=== PATIENT | male | born 1955 | race Caucasian/White ===

== ENCOUNTER 2016-09-11 09:05 | Inpatient (IN) | payer OTHER ==
[2016-08-29 09:11] VITALS: BMI 33.9
[~2016-09-11 09:05] MED LIST: ACETAMINOPHEN TAB 500 MG TAB PO ONE; DEXAMETHASONE SOD PHOSPHATE 10 MG/ML 1 ML VIAL IV ONE; FAMOTIDINE 20 MG/2 ML VIAL IV PRN; HYDROmorphone 1 MG/ML 1 ML SYRINGE IVP PRN; LACTATED RINGERS 1,000 ML IV SCH; LIDOCAINE 1% 20 ML VIAL (10MG/ML) FOR IV START INTRADERMA PRN; MELOXICAM 7.5 MG TAB PO ONE; MIDAZOLAM 2 MG/2 ML VIAL IV PRN; ONDANSETRON 4 MG/2 ML VIAL IVP ONE; TRANEXAMIC ACID 1,000 MG in SODIUM CHLORIDE 0.9% 100 ML IVPB ONE
[2016-09-11] MEDS ORDERED: LIDOCAINE 1% 20 ML VIAL (10MG/ML) FOR IV START INTRADERMA ONE (13:05)
[2016-09-11] MEDS ORDERED: LACTATED RINGERS 1,000 ML BAG IV ONE (15:23)
[2016-09-11] MEDS: ceFAZolin 2 GM in SODIUM CHLORIDE 0.9% 100 ML IVPB ONE ×2 (15:23→18:00)
[2016-09-11] MEDS ORDERED: TRANEXAMIC ACID 1,000 MG/10 ML VIAL ONE (15:23)
[2016-09-11] MEDS ORDERED: ceFAZolin 10 GM VIAL IVPB ONE (15:23)
[2016-09-11] MEDS ORDERED: PHENYLEPHRINE-0.9% NACL SYG 1 MG/10 ML SYRINGE ONE (15:23)
[2016-09-11] MEDS ORDERED: SODIUM CHLORIDE 0.9% 100 ML BAG ONE ×2 (15:23)
[2016-09-11] MEDS ORDERED: SODIUM CHLORIDE 0.9% IRRIG 3,000 ML BAG IRRIGATION ONE (15:23)
[2016-09-11] MEDS ORDERED: PROPOFOL 10 MG/ML 20 ML VIAL IV ONE (15:23)
[2016-09-11] MEDS ORDERED: fentaNYL (PF) 50 MCG/ML 2 ML AMP ONE (15:23)
[2016-09-11] MEDS ORDERED: ceFAZolin 1,000 MG VIAL ONE (15:23)
[2016-09-11] MEDS ORDERED: MIDAZOLAM 2 MG/2 ML VIAL ONE (15:23)
[2016-09-11] MEDS ORDERED: LACTATED RINGERS 1,000 ML IV ONE ×2 (15:40→17:13)
[2016-09-11] MEDS: ceFAZolin 3,000 MG in SODIUM CHLORIDE 0.9% IRRIGATIO 3,000 ML IRRIGATION ONE ×2 (16:17→18:00)
[2016-09-11] MEDS: ROPIVACAINE 246.25 MG, EPINEPHrine 0.5 MG, KETOROLAC 30 MG, cloNIDine HCL/PF 80 MCG, WA... MISCELLANE ONE ×10 (16:26→16:41)
[2016-09-11] MEDS: LACTATED RINGERS 1,000 ML IV ONE ×4 (17:12→18:00)
--- NOTE | 2016-09-11 17:19 | P.OP ---
Date of Procedure: 09/11/16 Procedure(s) Performed: PREOPERATIVE DIAGNOSIS: Right hip severe osteoarthritis POSTOPERATIVE DIAGNOSIS: Right hip severe osteoarthritis OPERATION: Right hip total replacement arthroplasty (uncemented implantation with ceramic on polyethylene articulation). ANESTHESIA: Spinal ESTIMATED BLOOD LOSS: 100 ml. CASTING HOUSE LABORER: Alexandra Lackey PA-C (assistance with: patient positioning, retraction, exposure, hemostasis, leg positioning, implantation, irrigation, closure, dressing) COMPLICATIONS: None apparent. COMPONENTS IMPLANTED: Ascencion continuum acetabular cup with cluster holes; continuum longevity 15 elevated liner, 32 mm id; Ascencion VerSys Fiber Metal taper stem; VerSys 32 mm femoral head with +7 mm neck length extension INDICATIONS: Mr. Matias is a 61-year-old male with significant end-stage osteoarthritis involving the right hip and commensurate severe symptoms. He presents to the operating room today for total hip replacement. I have discussed the steps of the operation as well as potential risks and complications as being inclusive of, but not limited to: Leading, infection, scarring, discomfort, or vessel and/or nerve damage, need for further surgery, loosening, dislocation, wear, osteolysis, limb length inequality, fracture, blood clot, pulmonary embolism, , persistent limp, and other risks. The patient is aware these risks and wishes to proceed with surgery and has signed a consent form. PROCEDURE: After appropriate consent was obtained, the patient was taken to the operating room and placed in supine position. Spinal anesthetic was administered and after confirmation of adequate anesthesia, the patient was placed into the lateral decubitus position with the right side up. Care was taken to make sure that all pressure points were adequately padded and he was stabilized to the table with a Jerzy hip positioner. The right hip was prepped and draped in the usual aseptic fashion using a combination of ChloraPrep and alcohol. Ioban drape was used for the case and the patient received intravenous antibiotics prior to the incision. "Time out" was called , confirming patient identity, side, procedure, availability of implants and administration of antibiotics. The incision was created directly over the greater trochanter and carried slightly posteriorly for a posterior approach to the hip. The incision was then deepened down to subcutaneous tissue and fascia sandie. Fascia sandie was split in line with the incision and split proximally along the fibers of the gluteus gisele. The underlying fibers of the muscle were teased apart using finger dissection and bleeding vessels were picked up and coagulated. Retractor was then placed posteriorly consisting of a blunt [place]. The short external rotators and capsule were exposed using good visualization of the attachment of the external rotators to the femur was established. The short external rotators and capsule were released using electrocautery from their femoral attachments. A hockey stick shaped incision was created in the capsule. Joint fluid was evacuated and the patient's hip was able to be dislocated fairly easily. The patient's femoral head was severely arthritic with eburnated bone present and a 360 degrees pérez of osteophytes. The femoral neck cut was created approximately 1 cm superior to the lesser trochanter using a reciprocating saw. The femoral head and neck fragment was removed and attention was then directed to the acetabulum. An anterior acetabular retractor was applied followed by posterior retraction of the capsule with a Meyerding retractor. This afforded good visualization into the acetabular cavity. Soft tissue was removed and residual cartilage within the acetabular vault was removed using a curette. Labrum was removed using a long-handled knife. Attention was then directed to reaming. The size 44 reamer was used first, followed by increasing increments until the final size reamer was used. Please see the implantation sheet for exact sizes used for the components. Once the final reamer had been utilized to expand the socket it was noted that there was a good supportive bone around the acetabular socket and no further reaming needed to be performed. The trial the same size as the last reamer used was then impacted into the acetabular vault and found to have good fit. The acetabular component, one size (2mm) greater than the trial was then called for. The cluster holes were placed posteriorly and the component was impacted in a position of approximately 40 degrees abduction and 20 degrees anteversion. This matched this patient's [place] anteversion and it was noted that the cup had excellent stability without need for additional screw fixation. Attention was then directed to the acetabular liner. The anteversion and abduction angle of the component was noted to be very good. A 15 elevated liner was used and locked into position with the elevation posterior superior. Osteophytes around the posterior and inferior aspect of the acetabulum were trimmed as necessary to prevent any impingement. Attention was then directed back to the proximal femur. Retractors were placed around the proximal femur and box osteotome was used followed by canal finder and trochanteric reamer. Cylindrical reaming was performed. Progressive broaching was then performed starting with a #10 broach and progressing final size, in a position of 15 degrees anteversion. [place] anteversion was within 5 degrees of stem position. The final size broach had excellent fit and fill of the patient's metaphysis and diaphysis. Trial reduction was then performed starting with size 32 mm femoral head and various neck combination of stability , limb length equality, and soft tissue tension. Trial components were then removed. The canal was lavaged and the final size femoral stem component was impacted into position. The implant fit very well and had excellent stability. The femoral head was then impacted onto the [place] taper. Blood and debris were removed from the acetabular component and the hip was then reduced and checked for stability, limb length and soft tissue tension. These parameters found to be satisfactory, the wound was then thoroughly irrigated with normal saline. Final hemostasis was obtained using electrocautery and IV tranexamic acid, 1 g given at the time of prepping and draping, and another 1 g given at the time of closure. Local anesthetic solution consisting of ropivacaine with epinephrine, clonidine, and ketorolac was also used throughout the case targeting the capsule , fascia, and skin. Closure of the capsule was performed meticulously using #3 Vicryl suture. Four [id number] sutures were placed in the posterior capsule along with repair of the external rotators. The fascia sandie was then repaired using combination of #3 Vicryl suture in interrupted fashion and Quill and running fashion. 2-0 Vicryl suture was used for the subcutaneous tissues and 3-0 Quill for the skin. Dermabond or Steri-Strips were then applied. The patient tolerated the procedure well. There were no complications and the wound bed was dry and there was no need for drain placement. Sterile dressing was then applied and the patient was carefully removed from the operating room table , placed on the stretcher and was taken to the recovery room in stable condition. Sponge and needle counts were correct.
[2016-09-11] MEDS ORDERED: HYDROmorphone 1 MG/ML 1 ML SYRINGE IVP PRN ×2 (17:37)
[2016-09-11] MEDS ORDERED: MAGNESIUM HYDROXIDE 2,400 MG/10 ML CUP PO PRN (17:37)
[2016-09-11] MEDS ORDERED: ONDANSETRON 4 MG/2 ML VIAL IVP PRN (17:37)
[2016-09-11] MEDS ORDERED: HYDROcodone/APAP 5-325MG 1 EACH TAB PO PRN (17:37)
[2016-09-11] MEDS ORDERED: NALOXONE 0.4 MG/ML 1 ML VIAL IV PRN (17:37)
--- NOTE | 2016-09-11 18:04 | XR ---
EXAMINATION TYPE: XR Hip Limited RT DATE OF EXAM: 09/11/2016 5:56 PM CLINICAL HISTORY: Postoperative evaluation TECHNIQUE: Single portable view of the right hip was submitted. FINDINGS: Noted are changes of total hip arthroplasty with femoral and acetabular components appearin g well seated. Alignment is anatomic. Postsurgical soft tissue changes are evident. IMPRESSION: Satisfactory postoperative alignment
[2016-09-11] MEDS: LACTATED RINGERS 1,000 ML IV SCH (19:49)
[2016-09-11] MEDS: HYDROmorphone 1 MG/ML 1 ML SYRINGE IVP PRN (19:50)
[2016-09-11] MEDS: SENNOSIDES-DOCUSATE SODIUM 1 EACH TAB PO SCH (21:54)
[2016-09-11] MEDS: ASPIRIN 325 MG TAB PO SCH (21:54)
[2016-09-11] MEDS: HYDROcodone/APAP 5-325MG 1 EACH TAB PO PRN (22:31)
[2016-09-11] MEDS: ceFAZolin 2 GM in SODIUM CHLORIDE 0.9% 100 ML IVPB SCH (23:18)
[2016-09-12] MEDS: HYDROmorphone 1 MG/ML 1 ML SYRINGE IVP PRN (01:48)
[2016-09-12] MEDS: HYDROcodone/APAP 5-325MG 1 EACH TAB PO PRN (03:41)
[2016-09-12] MEDS: LACTATED RINGERS 1,000 ML IV SCH ×2 (07:49→13:58)
[2016-09-12] MEDS: ASPIRIN 325 MG TAB PO SCH ×2 (07:50→22:20)
[2016-09-12] MEDS: MELOXICAM 7.5 MG TAB PO SCH (07:50)
[2016-09-12] MEDS: MULTIVITAMINS, THERA 1 EACH TAB PO SCH (07:51)
[2016-09-12 08:09] LABS: Basophils % (A) 0 %; CH 31.4; CHCM 35.4; Eosinophils % (A) 0 %; HCT 33.1 % (39.0-53.0); HDW 3.36; HGB 11.2 gm/dL (13.0-17.5); Luc # (Auto) 0.17; Luc % (Auto) 1; Lymphocytes # (A) 0.7 k/uL (1.0-4.8); Lymphocytes % (A) 6 %; MCH 30.2 pg (25.0-35.0); MCHC 33.8 g/dL (31.0-37.0); MCV 89.3 fL (80.0-100.0); Mean Platelet Volume 7.3; Monocytes # (A) 0.7 k/uL (0-1.0); Monocytes % (A) 5 %; Neutrophils # (A) 11.5 k/uL (1.3-7.7); Neutrophils % (A) 88 %; RDW 14.2 % (11.5-15.5); WBC 13.1 k/uL (3.8-10.6); WBC (Perox) 13.84
[2016-09-12] MEDS: ceFAZolin 2 GM in SODIUM CHLORIDE 0.9% 100 ML IVPB SCH (08:23)
--- NOTE | 2016-09-12 09:59 | P.PN ---
Subjective Principal diagnosis: Status post right total hip arthroplasty This is a 61 year-old male post total hip arthroplasty. This is post-op day 1. The patient was evaluated in the recliner chair at the bedside today. The patient denies nausea, vomiting, abdominal pain, shortness of breath, and chest pain this morning. He states his pain is controlled at this time. The patient has not been up with physical therapy. Objective - Vital Signs Vital signs: Vital Signs Temp 98.4 F 09/12/16 08:00 Pulse 102 H 09/12/16 08:00 Resp 14 09/12/16 08:00 BP 152/67 09/12/16 08:00 Pulse Ox 90 L 09/12/16 08:32 Intake & Output 09/11/16 09/12/16 09/12/16 18:59 06:59 18:59 Intake Total 2301 1100 240 Output Total 400 1000 650 Balance 1901 100 -410 Weight 95.254 kg Intake: IV 2301 Intake, IV Titration 400 Amount Lactated Ringers 1,000 ml 400 @ 100 mls/hr IV .Q10H REBECCA Rx#:[id number] Oral 700 240 Output: Urine 300 1000 650 Uretheral (Oakley) 1000 650 Estimated Blood Loss 100 Other: Voiding Method Indwelling Catheter Indwelling Catheter - Exam The patient does not appear in acute distress. Alert and orientated x3. Dressing is clean dry and intact. Incision appears fine with no erythema or active drainage. Calf is soft and nontender. Good foot and ankle motion without difficulty. Sensation and circulatory status is intact. - Labs CBC & Chem 7: 09/12/16 07:50 Labs: Abnormal Lab Results - Last 24 Hours (Table) 09/12/16 Range/Units 07:50 WBC 13.1 H (3.8-10.6) k/uL RBC 3.70 L (4.30-5.90) m/uL Hgb 11.2 L (13.0-17.5) gm/dL Hct 33.1 L (39.0-53.0) % Neutrophils # 11.5 H (1.3-7.7) k/uL Lymphocytes # 0.7 L (1.0-4.8) k/uL Assessment and Plan (1) Primary osteoarthritis of right hip Status: Acute (2) Status post right hip replacement Status: Acute Plan: 1. Continue pain control 2. Anticoagulation with Aspirin 3. Continue physical therapy and ambulation 4. Anticipate discharge home with homecare in the next 1-2 days.
--- NOTE | 2016-09-12 12:06 | P.CONS ---
History of Present Illness - Reason for Consult Consult date: 09/12/16 Radiotherapy for prophylactic heterotrophic ossificaiton Requesting physician: Castro Neal - Chief Complaint I had a right hip replacement - History of Present Illness Mr. Matias is a 61-year-old male with significant end-stage osteoarthritis involving the right hip. He underwent right hip replacement on 09/11/2016 under the care of Dr. Neal. Intraoperativly the patient's femoral head was severely arthritic with eburnated bone present and a 360 degrees pérez of osteophytes. Mr. 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 Mr. Matias appears to be doing quite well today. He states appropriate pain control. Denies nausea, vomiting, fever or chills. Review of Systems Constitutional: Reports chronic pain, Denies as per HPI, Denies anorexia, Denies chills, Denies chronic headaches, Denies daytime sleepiness, Denies fatigue, Denies fever, Denies lethargy, Denies malaise, Denies night sweats, Denies poor appetite, Denies sweats, Denies weakness, Denies weight gain, Denies weight loss Respiratory: Denies as per HPI, Denies congestion, Denies cough, Denies cough with sputum, Denies dyspnea, Denies excessive sputum, Denies hemoptysis, Denies home oxygen, Denies pain, Denies pain on inspiration, Denies pleurisy, Denies respiratory infections, Denies sleep apnea, Denies snoring, Denies wheezing Musculoskeletal: Reports leg numbness/tingling, Reports low back pain, Reports morning stiffness Musculoskeletal: right: hip pain, hip stiffness, hip swelling, bilateral: knee pain Past Medical History Past Medical History: Hyperlipidemia, Hypertension, Osteoarthritis (OA) Additional Past Medical History / Comment(s): . History of Any Multi-Drug Resistant Organisms: Unobtainable Past Surgical History: Orthopedic Surgery Additional Past Surgical History / Comment(s): CIRCUMCISION LATER IN LIFE. 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 Smoking Status: Never smoker Past Alcohol Use History: Rare Past Drug Use History: None Reported - Past Family History Sister(s) Family Medical History: Cancer Additional Family Medical History / Comment(s): LUNG, ANOTHER SISTER FROM CHF Mother Additional Family Medical History / Comment(s): FROM CARDIAC DYSRYTHMIA Father Family Medical History: Coronary Artery Disease (CAD) Additional Family Medical History / Comment(s): AFTER CABG SX 1975- Medications and Allergies Home Medications Medication Instructions Recorded Confirmed Type Amitriptyline HCl [Elavil] 10 mg PO HS 08/29/16 09/11/16 History Ergocalciferol (Vitamin D2) 50,000 unit PO DUMONT 08/29/16 09/11/16 History [Vitamin D2] Gabapentin 600 mg PO BID 08/29/16 08/29/16 History Ibuprofen [Motrin] 800 mg PO BID PRN 08/29/16 09/11/16 History Simvastatin [Zocor] 80 mg PO HS 08/29/16 08/29/16 History amLODIPine [Norvasc] 5 mg PO DAILY 08/29/16 09/11/16 History clonazePAM [KlonoPIN] 0.5 mg PO HS 08/29/16 09/11/16 History traMADol HCL [Ultram] 50 mg PO Q6HR PRN 08/29/16 09/11/16 History Allergies Allergy/AdvReac Type Severity Reaction Status Date / Time No Known Allergies Allergy Verified 08/29/16 09:01 Physical Exam Vitals: Vital Signs Temp Pulse Pulse Resp BP BP Pulse Ox 09/12/16 08:32 90 L 09/12/16 08:00 98.4 F 102 H 14 152/67 93 L 09/12/16 01:35 97.0 F L 102 H 16 124/71 93 L 09/11/16 23:45 17 09/11/16 20:00 90 106 H 16 92 L 09/11/16 19:45 116 H 133/73 09/11/16 19:30 105 H 108/68 09/11/16 19:15 108 H 128/68 09/11/16 19:00 108 H 126/71 09/11/16 18:45 108 H 140/72 09/11/16 18:30 108 H 124/76 09/11/16 18:15 97.6 F 96 16 143/79 92 L 09/11/16 18:00 91 18 129/61 96 09/11/16 17:45 90 18 127/59 96 09/11/16 17:37 98.0 F 107 H 14 140/72 09/11/16 17:30 97.4 F L 93 18 132/62 94 L 09/11/16 13:05 97.8 F 106 H 16 163/79 93 L Intake and Output 09/11/16 09/12/16 09/12/16 22:59 06:59 14:59 Intake Total 2301 500 240 Output Total 400 1000 650 Balance 1901 -500 -410 Intake: IV 1701 Intake, IV Titration 400 Amount Lactated Ringers 1,000 ml 400 @ 100 mls/hr IV .Q10H REBECCA Rx#:[id number] Oral 200 500 240 Output: Urine 300 1000 650 Uretheral (Oakley) 1000 650 Estimated Blood Loss 100 Other: Voiding Method Indwelling Catheter Indwelling Catheter Weight 95.254 kg - Constitutional General appearance: average body habitus - EENT Eyes: EOMI - Respiratory Respiratory: bilateral: CTA - Cardiovascular Rhythm: regular Heart sounds: normal: S1, S2 - Musculoskeletal Musculoskeletal: right sided weakness Results CBC & Chem 7: 09/12/16 07:50 Labs: Abnormal Lab Results - Last 24 Hours (Table) 09/12/16 Range/Units 07:50 WBC 13.1 H (3.8-10.6) k/uL RBC 3.70 L (4.30-5.90) m/uL Hgb 11.2 L (13.0-17.5) gm/dL Hct 33.1 L (39.0-53.0) % Neutrophils # 11.5 H (1.3-7.7) k/uL Lymphocytes # 0.7 L (1.0-4.8) k/uL Assessment and Plan Plan: Mr. Matias is a 61 year old male status post right hip replacement who now presents for external beam radiation to decrease his risk of heterotrophic ossification. Postoperative RT has been shown to be an effective prophylactic treatment to prevent heterotopic bone from partially or completely ankylosing the joint space, causing pain and/or limiting the range of motion. We therefore intend on delivering a single fraction of external beam radiation to a total dose of 700 cGy. We will use 23MV photons in an AP/PA beam arrangement. The patient will be treated this afternoon 09/12/2016. A discussion of the risks and side effects were had including, but not limited to skin redness, irritation, decreased sperm counts, risk of secondary malignancy.
[2016-09-12] MEDS: hydrOXYzine PAMOATE 25 MG CAP PO PRN ×3 (13:56→23:58)
[2016-09-12] MEDS: HYDROcodone/APAP 7.5-325MG 1 EACH TAB PO PRN ×3 (13:56→23:59)
--- NOTE | 2016-09-12 16:17 | P.CONS ---
History of Present Illness - Reason for Consult Consult date: 09/12/16 Medical management Requesting physician: Castro Neal - Chief Complaint Right posterior arthritis - History of Present Illness This is a 61-year-old gentleman with past medical history noted below who was currently admitted to the hospital and is postoperative day #1 status post elective total right hip arthroplasty. Patient is doing fairly well. He does not have any specific concerns or complaints. I was asked to see him for medical management. His blood pressure is slightly elevated. Review of Systems Review of system: 14 points review of systems were obtained and were negative except to what were mentioned in the HPI. Past Medical History Past Medical History: Hyperlipidemia, Hypertension, Osteoarthritis (OA) Additional Past Medical History / Comment(s): . History of Any Multi-Drug Resistant Organisms: Unobtainable Past Surgical History: Orthopedic Surgery Additional Past Surgical History / Comment(s): CIRCUMCISION LATER IN LIFE. 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 Smoking Status: Never smoker Past Alcohol Use History: Rare Past Drug Use History: None Reported - Past Family History Sister(s) Family Medical History: Cancer Additional Family Medical History / Comment(s): LUNG, ANOTHER SISTER FROM CHF Mother Additional Family Medical History / Comment(s): FROM CARDIAC DYSRYTHMIA Father Family Medical History: Coronary Artery Disease (CAD) Additional Family Medical History / Comment(s): AFTER CABG S1975- Medications and Allergies Home Medications Medication Instructions Recorded Confirmed Type Amitriptyline HCl [Elavil] 10 mg PO HS 08/29/16 09/11/16 History Ergocalciferol (Vitamin D2) 50,000 unit PO DUMONT 08/29/16 09/11/16 History [Vitamin D2] Gabapentin 600 mg PO BID 08/29/16 08/29/16 History Ibuprofen [Motrin] 800 mg PO BID PRN 08/29/16 09/11/16 History Simvastatin [Zocor] 80 mg PO HS 08/29/16 08/29/16 History amLODIPine [Norvasc] 5 mg PO DAILY 08/29/16 09/11/16 History clonazePAM [KlonoPIN] 0.5 mg PO HS 08/29/16 09/11/16 History traMADol HCL [Ultram] 50 mg PO Q6HR PRN 08/29/16 09/11/16 History Allergies Allergy/AdvReac Type Severity Reaction Status Date / Time No Known Allergies Allergy Verified 08/29/16 09:01 Physical Exam Vitals: Vital Signs Temp Pulse Pulse Resp BP BP Pulse Ox 09/12/16 14:31 97.6 F 96 16 124/54 94 L 09/12/16 08:32 90 L 09/12/16 08:00 98.4 F 102 H 14 152/67 93 L 09/12/16 01:35 97.0 F L 102 H 16 124/71 93 L 09/11/16 23:45 17 09/11/16 20:00 90 106 H 16 92 L 09/11/16 19:45 116 H 133/73 09/11/16 19:30 105 H 108/68 09/11/16 19:15 108 H 128/68 09/11/16 19:00 108 H 126/71 09/11/16 18:45 108 H 140/72 09/11/16 18:30 108 H 124/76 09/11/16 18:15 97.6 F 96 16 143/79 92 L 09/11/16 18:00 91 18 129/61 96 09/11/16 17:45 90 18 127/59 96 09/11/16 17:37 98.0 F 107 H 14 140/72 09/11/16 17:30 97.4 F L 93 18 132/62 94 L Intake and Output 09/12/16 09/12/16 09/12/16 06:59 14:59 22:59 Intake Total 500 740 Output Total 1000 1050 Balance -500 -310 Intake: Oral 500 740 Output: Urine 1000 1050 Uretheral (Oakley) 1000 650 Other: Voiding Method Indwelling Catheter General: The patient is awake and alert, in no distress, and does not appear acutely ill. Eye: extra-ocular movements are intact; there is normal conjunctiva bilaterally. . Neck: The neck is supple, there is no tenderness or JVD. Cardiovascular: Normal S1-S2, no S3-S4, no murmurs. Respiratory: Lungs clear to auscultation bilaterally with no wheezes rhonchi or rales. Gastrointestinal: Abdomen is soft, nontender, nondistended, with no organomegaly. . Musculoskeletal: Normal ROM, no tenderness, There is no pedal edema. Neurological: There are no obvious motor or sensory deficits. Speech is normal. Skin: Skin is warm and dry and no rashes or lesions are noted. Results CBC & Chem 7: 09/12/16 07:50 Labs: Abnormal Lab Results - Last 24 Hours (Table) 09/12/16 Range/Units 07:50 WBC 13.1 H (3.8-10.6) k/uL RBC 3.70 L (4.30-5.90) m/uL Hgb 11.2 L (13.0-17.5) gm/dL Hct 33.1 L (39.0-53.0) % Neutrophils # 11.5 H (1.3-7.7) k/uL Lymphocytes # 0.7 L (1.0-4.8) k/uL Assessment and Plan Plan: 1. Postoperative day #1 status post total right hip arthroplasty 2. DVT prophylaxis currently with full dose aspirin twice daily per orthopedic protocol 3. Leukocytosis: Most likely reactive. No evidence of infection. I would repeat CBC in the morning. 4. Essential hypertension: Blood pressure not well controlled. I will resume home medication and continue to monitor closely 5. Physical debility, awaiting PT/OT evaluation Today, I reviewed her medication list and lab work results. Continue current regimen. Thank you very much for the consultation. I will continue to follow up on the patient closely.
[2016-09-12] MEDS: amLODIPine 5 MG TAB PO SCH (17:04)
[2016-09-12] MEDS ORDERED: AMITRIPTYLINE HCL 10 MG TAB PO SCH (21:00)
[2016-09-12] MEDS ORDERED: ATORVASTATIN 40 MG TAB PO SCH (21:00)
[2016-09-12] MEDS ORDERED: clonazePAM 0.5 MG TAB PO SCH (21:00)
[2016-09-12] MEDS: SENNOSIDES-DOCUSATE SODIUM 1 EACH TAB PO SCH (22:20)
[2016-09-12] MEDS: GABAPENTIN 300 MG CAP PO SCH (22:21)
[2016-09-13 01:48] VITALS: RESP 16
[2016-09-13] MEDS: LACTATED RINGERS 1,000 ML IV SCH (06:05)
[2016-09-13] MEDS: hydrOXYzine PAMOATE 25 MG CAP PO PRN (06:10)
[2016-09-13] MEDS: HYDROcodone/APAP 7.5-325MG 1 EACH TAB PO PRN (06:10)
[2016-09-13 07:51] LABS: ALT 40 U/L (21-72); AST 40 U/L (17-59); Alkaline Phosphatase 75 U/L (38-126); Anion Gap 5 mmol/L; Blood Urea Nitrogen 16 mg/dL (9-20); Calcium 8.7 mg/dL (8.4-10.2); Carbon Dioxide 32 mmol/L (22-30); Chloride 104 mmol/L (98-107); Glucose 127 mg/dL (74-99); Non-African American GFR(MDRD) >60 (>60 ml/min/1.73 sqM); Potassium 4.1 mmol/L (3.5-5.1); Sodium 141 mmol/L (137-145); Total Bilirubin 0.4 mg/dL (0.2-1.3); Total Protein 6.8 g/dL (6.3-8.2)
[2016-09-13 07:52] VITALS: BP 128/75; PULSE 89; TEMP 97.7
--- NOTE | 2016-09-13 08:39 | P.DS ---
Providers Date of admission: 09/11/16 12:30 Expected date of discharge: 09/13/16 Attending physician: Castro Neal Consults: 09/11/16 15:38 Consult Physician Routine Consulting Provider: Javy Rodriguez Consult Reason/Comments: prophylactic radiation tx right hip Do you want consulting provider notified?: Yes 09/11/16 17:37 Consult Physician Routine Consulting Provider: Iman Huerta Consult Reason/Comments: medical management Do you want consulting provider notified?: Yes 09/12/16 09:22 Consult Physician Urgent Consulting Provider: Irving Balbuena Consult Reason/Comments: prophylactic radiation right hip Do you want consulting provider notified?: Already Contacted Primary care physician: Cheryle Cabello - Discharge Diagnosis(es) (1) Primary osteoarthritis of right hip Current Visit: Yes Status: Acute (2) Status post right hip replacement Current Visit: Yes Status: Acute Hospital Course: This is a 61-year-old male with known history of degenerative arthritis of the right hip. The patient presents for evaluation. After discussion and consideration patient elects to proceed with total hip arthroplasty. The patient is seen preoperatively by Dr. Cabello and cleared for surgery. Patient is admitted to [facility] on 09/21/2016 for total hip arthroplasty. The procedures performed without complication or sequelae. The patient is doing well postoperatively. Labs and vital signs are stable on day of discharge. On day of discharge patient's hip incision is healing well. There is minimal erythema. There is no drainage noted at this time. There is minimal soft tissue swelling to the hip and thigh. Patient has full foot and ankle motion without difficulty or pain. Neurovascular status to the right lower extremity is intact. Patient is discharged to home in good condition. Please see med rec for accurate list of home medications. Plan - Discharge Summary New Discharge Prescriptions: Aspirin 325 mg PO BID #120 tab HYDROcodone/APAP 5-325MG [[place] 5] 1 - 2 each PO Q4-6H PRN #90 tab PRN Reason: Pain Sennosides-Docusate Sodium [Senokot-S] 1 tab PO BID #60 tablet Discharge Medication List Amitriptyline HCl [Elavil] 10 mg PO HS 08/29/16 [History] Ergocalciferol (Vitamin D2) [Vitamin D2] 50,000 unit PO DUMONT 12/27/16 [History] Gabapentin 600 mg PO BID 08/29/16 [History] Ibuprofen [Motrin] 800 mg PO BID PRN 08/29/16 [History] Simvastatin [Zocor] 80 mg PO HS 08/29/16 [History] amLODIPine [Norvasc] 5 mg PO DAILY 08/29/16 [History] clonazePAM [KlonoPIN] 0.5 mg PO HS 08/29/16 [History] traMADol HCL [Ultram] 50 mg PO Q6HR PRN 08/29/16 [History] Aspirin 325 mg PO BID #120 tab 09/11/16 [Rx] HYDROcodone/APAP 5-325MG [[place] 5] 1 - 2 each PO Q4-6H PRN #90 tab 09/11/16 [Rx] Sennosides-Docusate Sodium [Senokot-S] 1 tab PO BID #60 tablet 09/11/16 [Rx] Follow up Appointment(s)/Referral(s): [facility], [NON-STAFF] - Castro Neal MD [STAFF PHYSICIAN] - 2 Weeks Activity/Diet/Wound Care/Special Instructions: [facility] - [phone] 50% wt bearing RLE w walker. May shower if no drainage from incision. Discharge Disposition: HOME WITH HOME HEALTH SERVICES
[2016-09-13] MEDS: MELOXICAM 7.5 MG TAB PO SCH (08:50)
[2016-09-13] MEDS: ASPIRIN 325 MG TAB PO SCH (08:50)
[2016-09-13] MEDS: GABAPENTIN 300 MG CAP PO SCH (08:50)
[2016-09-13] MEDS: amLODIPine 5 MG TAB PO SCH (08:51)
[2016-09-13] MEDS: MULTIVITAMINS, THERA 1 EACH TAB PO SCH (11:27)
--- NOTE | 2016-09-13 14:16 | P.PN ---
Subjective Patient will be discharged home today Objective - Vital Signs Vital signs: Vital Signs Temp 97.7 F 09/13/16 07:30 Pulse 89 09/13/16 07:30 Resp 16 09/13/16 07:30 BP 128/75 09/13/16 07:30 Pulse Ox 93 L 09/13/16 07:30 Intake & Output 09/12/16 09/13/16 09/13/16 18:59 06:59 18:59 Intake Total 740 200 Output Total 1450 Balance -710 200 Weight 95.254 kg Intake: Oral 740 200 Output: Urine 1450 Uretheral (Oakley) 650 Other: Voiding Method Indwelling Catheter Toilet Toilet # Voids 1 - Labs CBC & Chem 7: 09/12/16 07:50 09/13/16 06:55 Labs: Abnormal Lab Results - Last 24 Hours (Table) 09/13/16 Range/Units 06:55 Carbon Dioxide 32 H (22-30) mmol/L Creatinine 0.57 L (0.66-1.25) mg/dL Glucose 127 H (74-99) mg/dL Albumin 3.2 L (3.5-5.0) g/dL Assessment and Plan Plan: 1. Postoperative day #2 status post total right hip arthroplasty 2. DVT prophylaxis currently with full dose aspirin twice daily per orthopedic protocol 3. Leukocytosis: Most likely reactive. No evidence of infection. 4. Essential hypertension: Blood pressure not well controlled. I will resume home medication and continue to monitor closely 5. Physical debility, awaiting PT/OT evaluation Today, I reviewed her medication list and lab work results. Continue current regimen. Thank you very much for the consultation. I will continue to follow up on the patient closely.
[2016-09-17] MEDS ORDERED: ERGOCALCIFEROL 50,000 UNIT CAP PO SCH (12:00)
== END 2016-09-13 14:59 | disposition home health service (06) | DRG 470 ==
LOC: 2ORMAIN 12:30 → 3SUR 17:34
PROVIDERS: ADMIT Orthopaedic Surgery; ATTEND Orthopaedic Surgery
PROC: 0SR904A Replacement of Right Hip Joint with Ceramic on Polyethylene Synthetic Substitute, Uncemented, Open Approach (ICD-10-PCS; principal; 2016-09-11 15:05)
DX: M16.11 Unilateral primary osteoarthritis, right hip (principal); I10 Essential (primary) hypertension; E78.5 Hyperlipidemia, unspecified; Z79.899 Other long term (current) drug therapy; Z82.49 Family history of ischemic heart disease and other diseases of the circulatory system
CPT/HCPCS: 73501; 77295; 77300; 77334; 77336; 77387; 77412; 77470; 80053; 85025; 86850; 86900; 86901; 88300; 94760

== ENCOUNTER 2016-11-07 06:18 | Day surgery (SDC) | payer OTHER ==
[2016-11-02 09:48] VITALS: BMI 33.9
[~2016-11-07 06:18] MED LIST changes: -ACETAMINOPHEN TAB 500 MG TAB PO ONE; +HEPARIN SODIUM,PORCINE 5,000 UNIT/ML 1 ML VIAL SQ ONE; -HYDROmorphone 1 MG/ML 1 ML SYRINGE IVP PRN; -LACTATED RINGERS 1,000 ML IV SCH; -MELOXICAM 7.5 MG TAB PO ONE; -ONDANSETRON 4 MG/2 ML VIAL IVP ONE; +SCOPOLAMINE 1.5MG/72HR PATCH TRANSDERM ONE; -TRANEXAMIC ACID 1,000 MG in SODIUM CHLORIDE 0.9% 100 ML IVPB ONE; +ceFAZolin 2 GM in SODIUM CHLORIDE 0.9% 100 ML IVPB ONE
[2016-11-07] MEDS: LACTATED RINGERS 1,000 ML IV SCH ×2 (06:50→06:51)
[2016-11-07] MEDS: ONDANSETRON 4 MG/2 ML VIAL IVP ONE ×2 (06:51→09:37)
--- NOTE | 2016-11-07 07:42 | P.GSHP ---
History of Present Illness H&P Date: 11/07/16 Chief Complaint: Incarcerated umbilical hernia This is a 61-year-old male who presents today for laparoscopic robotic-assisted repair of incarcerated umbilical hernia. - Constitutional Constitutional: Reports as per HPI Past Medical History Past Medical History: Hyperlipidemia, Hypertension, Osteoarthritis (OA) Additional Past Medical History / Comment(s): HERNIATED DISCS WITH BACK PAIN, HX OF DIVERTICULITIS. , ARTHRITIS IN JOINTS. . History of Any Multi-Drug Resistant Organisms: None Reported Past Surgical History: Joint Replacement, Orthopedic Surgery Additional Past Surgical History / Comment(s): CIRCUMCISION, COLONOSCOPY, CARMITA MENISCUS SURGERY, TOTAL RT HIP (09/11/16) Past Anesthesia/Blood Transfusion Reactions: No Reported Reaction Past Psychological History: No Psychological Hx Reported Additional Psychological History / Comment(s): . Smoking Status: Never smoker Past Alcohol Use History: Rare Past Drug Use History: None Reported - Past Family History Sister(s) Family Medical History: Cancer Additional Family Medical History / Comment(s): LUNG, ANOTHER SISTER FROM CHF Mother Additional Family Medical History / Comment(s): FROM CARDIAC DYSRYTHMIA Father Family Medical History: Coronary Artery Disease (CAD) Additional Family Medical History / Comment(s): AFTER CABG SX 1975- Medications and Allergies Home Medications Medication Instructions Recorded Confirmed Type Amitriptyline HCl [Elavil] 10 mg PO HS 08/29/16 11/07/16 History Ergocalciferol (Vitamin D2) 50,000 unit PO DUMONT 08/29/16 11/07/16 History [Vitamin D2] Gabapentin 600 mg PO TID 08/29/16 11/07/16 History Ibuprofen [Motrin] 800 mg PO DIRECTED PRN 08/29/16 11/07/16 History Simvastatin [Zocor] 80 mg PO HS 08/29/16 11/07/16 History amLODIPine [Norvasc] 5 mg PO DAILY 08/29/16 11/07/16 History clonazePAM [KlonoPIN] 0.5 mg PO HS PRN 08/29/16 11/07/16 History traMADol HCL [Ultram] 50 mg PO TID PRN 08/29/16 11/07/16 History Acetaminophen Tab [Tylenol Tab] 650 mg PO DIRECTED PRN 11/02/16 11/07/16 History Allergies Allergy/AdvReac Type Severity Reaction Status Date / Time No Known Allergies Allergy Verified 11/07/16 06:28 Surgical - Exam Vital Signs Temp Pulse Resp BP Pulse Ox 98.1 F 102 H 16 155/91 94 L 11/07/16 06:39 11/07/16 06:39 11/07/16 06:39 11/07/16 06:39 11/07/16 06:39 - General well developed, no distress - Eyes PERRL - ENT normal pinna - Neck no masses - Respiratory normal expansion - Abdomen Abdomen: soft, non tender Hernia: umbilical, incarcerated Assessment and Plan Plan: Incarcerated umbilical hernia. We'll perform laparoscopic robotic-assisted repair of incarcerated umbilical hernia.
[2016-11-07] MEDS ORDERED: LABETALOL 5 MG/ML VIAL MDV ONE (07:47)
[2016-11-07] MEDS ORDERED: LIDOCAINE 1% INJ 10MG/ML (20 ML MDV) ONE (07:47)
[2016-11-07] MEDS ORDERED: GLYCOPYRROLATE 0.2 MG/ML 2 ML VIAL ONE (07:47)
[2016-11-07] MEDS ORDERED: SUCCINYLCHOLINE CHLORIDE VIAL 200 MG/10 ML VIAL IV ONE (07:47)
[2016-11-07] MEDS ORDERED: fentaNYL (PF) 50 MCG/ML 2 ML AMP ONE (07:47)
[2016-11-07] MEDS ORDERED: PROPOFOL 10 MG/ML 20 ML VIAL IV ONE (07:47)
[2016-11-07] MEDS ORDERED: NEOSTIGMINE 1 MG/ML 10 ML VIAL ONE (07:47)
[2016-11-07] MEDS ORDERED: VECURONIUM 10 MG VIAL IV ONE (07:47)
[2016-11-07] MEDS ORDERED: MIDAZOLAM 2 MG/2 ML VIAL ONE (07:47)
[2016-11-07] MEDS ORDERED: BUPIVACAIN-EPI 0.25%-1:200,000 30 ML VIAL SQ ONE ×2 (08:05→08:12)
--- NOTE | 2016-11-07 08:52 | P.OP ---
Date of Procedure: 11/07/16 Preoperative Diagnosis: Incarcerated umbilical hernia Postoperative Diagnosis: Incarcerated umbilical hernia Procedure(s) Performed: Laparoscopic robotic-assisted repair of incarcerated umbilical hernia Anesthesia: TOYA Surgeon: Marvin Hardin Estimated Blood Loss (ml): 5 Pathology: none sent Condition: stable Disposition: PACU Description of Procedure: The patient's placed on the operating table in the supine position. He received general anesthesia. His abdomen was prepped and draped usual sterile fashion. The skin incision sites were anesthetized 1% local Xylocaine. Using a 5 mm blade was trocar under direct visitation the perineal cavity is entered. This initial trocar is placed in left upper quadrant. Next a 8 mm robotic trocar was placed in the left lower quadrant a 12 mm trocar was placed in left lateral position and the initial 5 mm trocar was exchanged for a 8 mm robotic trocar. The patient's placed left side up position and then the patient was docked to the robot. The incarcerated omentum was seen entering the umbilical hernia. The omentum was reduced. The fascial defect was then closed using oh the lock suture. Next a [address] mesh was placed into the cavity and secured with 20V lock suture. The needles were cut and parked on the falciform ligament. The patient was undocked from the robot. The needles were retrieved and then the trochars were withdrawn. The 12 mm trocar site was closed with 0 Ethibond suture and a Keith Rivera suture passer. The skin was closed interrupted 3-0 Monocryl suture. Dermabond was applied. Patient was sent to recovery in stable condition.
[2016-11-07 09:12] VITALS: TEMP 97.4
[2016-11-07] MEDS ORDERED: KETOROLAC 30 MG/ML 1 ML VIAL IVP ONE (09:22)
[2016-11-07] MEDS: HYDROmorphone 1 MG/ML 1 ML SYRINGE IVP PRN ×4 (09:37→10:04)
[2016-11-07] MEDS ORDERED: hydrALAZINE HCL 20 MG/ML 1 ML VIAL IVP ONE (09:47)
[2016-11-07] MEDS ORDERED: HYDROcodone/APAP 7.5-325MG 1 EACH TAB PO ONE (10:56)
[2016-11-07 12:27] VITALS: BP 143/78; PULSE 81; RESP 20
== END 2016-11-07 12:33 | disposition home or self-care (01) ==
LOC: OR 06:18
PROVIDERS: ATTEND Surgery
DX: K42.0 Umbilical hernia with obstruction, without gangrene (principal); I10 Essential (primary) hypertension; E78.5 Hyperlipidemia, unspecified; Z79.899 Other long term (current) drug therapy
CPT/HCPCS: 49653; C1781; J2250; J0330; J0360; J1644; J1100; J2710; J0690; J2405; J2001; J3010; J1885; J1170; J2704

== ENCOUNTER → 2016-12-11 | Outpatient (CLI) | payer OTHER ==
[2016-12-11 12:17] LABS: Basophils % (A) 0 %; CH 28.8; CHCM 33.2; Eosinophils # (A) 0.2 k/uL (0-0.7); Eosinophils % (A) 2 %; HCT 43.3 % (39.0-53.0); HDW 3.15; HGB 14.6 gm/dL (13.0-17.5); Luc # (Auto) 0.28; Luc % (Auto) 4; Lymphocytes # (A) 2.2 k/uL (1.0-4.8); Lymphocytes % (A) 28 %; MCH 29.3 pg (25.0-35.0); MCHC 33.7 g/dL (31.0-37.0); MCV 86.9 fL (80.0-100.0); Mean Platelet Volume 6.4; Monocytes # (A) 0.5 k/uL (0-1.0); Monocytes % (A) 7 %; Neutrophils # (A) 4.6 k/uL (1.3-7.7); Neutrophils % (A) 59 %; RBC 4.98 m/uL (4.30-5.90); WBC 7.9 k/uL (3.8-10.6); WBC (Perox) 8.04
[2016-12-11 12:25] LABS: Appearance,Urine Clear (Clear); Bilirubin,Urine Negative (Negative); Glucose,Urine (UA) 3+ (Negative); Ketones,Urine 1+ (Negative); Leukocyte Esterase,Urine Negative (Negative); Nitrite,Urine Negative (Negative); PH, Urine 5.5 (5.0-8.0); Protein,Urine Trace (Negative); UA Billing (MACRO vs. MICRO) CHEM; Urobilinogen,Urine <2.0 mg/dL (<2.0)
[2016-12-11 12:29] LABS: Partial Thromboplastin Time 26.4 sec (22.0-30.0); Prothrombin Time 10.5 sec (9.0-12.0)
[2016-12-11 12:47] LABS: ALT 47 U/L (21-72); AST 42 U/L (17-59); Alkaline Phosphatase 100 U/L (38-126); Anion Gap 12 mmol/L; Blood Urea Nitrogen 18 mg/dL (9-20); Calcium 10.1 mg/dL (8.4-10.2); Carbon Dioxide 26 mmol/L (22-30); Chloride 101 mmol/L (98-107); Glucose 167 mg/dL (74-99); Non-African American GFR(MDRD) >60 (>60 ml/min/1.73 sqM); Potassium 4.4 mmol/L (3.5-5.1); Sodium 139 mmol/L (137-145); Total Bilirubin 0.6 mg/dL (0.2-1.3)
== END | disposition home or self-care (01) ==
LOC: LABWHC1 11:14
PROVIDERS: ATTEND Orthopaedic Surgery
DX: Z01.810 Encounter for preprocedural cardiovascular examination (principal); Z01.812 Encounter for preprocedural laboratory examination
CPT/HCPCS: 36415; 80053; 81003; 85025; 85610; 85730; 87070

== ENCOUNTER 2016-12-25 10:46 | Inpatient (IN) | payer OTHER ==
[2016-12-19 15:28] VITALS: BMI 33.9
[~2016-12-25 10:46] MED LIST changes: +ACETAMINOPHEN TAB 500 MG TAB PO ONE; -DEXAMETHASONE SOD PHOSPHATE 10 MG/ML 1 ML VIAL IV ONE; -FAMOTIDINE 20 MG/2 ML VIAL IV PRN; -HEPARIN SODIUM,PORCINE 5,000 UNIT/ML 1 ML VIAL SQ ONE; -LIDOCAINE 1% 20 ML VIAL (10MG/ML) FOR IV START INTRADERMA PRN; +MELOXICAM 7.5 MG TAB PO ONE; -MIDAZOLAM 2 MG/2 ML VIAL IV PRN; +ONDANSETRON 4 MG/2 ML VIAL IVP ONE; -SCOPOLAMINE 1.5MG/72HR PATCH TRANSDERM ONE; +TRANEXAMIC ACID 1,000 MG in SODIUM CHLORIDE 0.9% 100 ML IVPB ONE
[2016-12-25] MEDS ORDERED: DEXAMETHASONE SOD PHOSPHATE 10 MG/ML 1 ML VIAL IV ONE (10:52)
[2016-12-25] MEDS ORDERED: ONDANSETRON 4 MG/2 ML VIAL IVP ONE (10:52)
[2016-12-25] MEDS ORDERED: MIDAZOLAM 2 MG/2 ML VIAL IV PRN (10:52)
[2016-12-25] MEDS ORDERED: LACTATED RINGERS 1,000 ML IV SCH (10:52)
[2016-12-25] MEDS ORDERED: HYDROmorphone 1 MG/ML 1 ML SYRINGE IVP PRN ×3 (10:52→16:08)
[2016-12-25] MEDS ORDERED: LIDOCAINE 1% 20 ML VIAL (10MG/ML) FOR IV START INTRADERMA ONE (11:06)
[2016-12-25] MEDS ORDERED: LACTATED RINGERS 1,000 ML IV ONE (11:06)
[2016-12-25 11:26] LABS: Glucose,Whole Blood 128 mg/dL (75-99)
[2016-12-25] MEDS ORDERED: ROPIVACAINE 246.25 MG, EPINEPHrine 0.5 MG, KETOROLAC 30 MG, cloNIDine HCL/PF 80 MCG, WA... MISCELLANE ONE ×5 (13:41)
[2016-12-25] MEDS ORDERED: PROPOFOL 10 MG/ML 20 ML VIAL IV ONE (13:41)
[2016-12-25] MEDS ORDERED: fentaNYL (PF) 50 MCG/ML 2 ML AMP ONE (13:41)
[2016-12-25] MEDS ORDERED: TRANEXAMIC ACID 1,000 MG/10 ML VIAL ONE (13:41)
[2016-12-25] MEDS ORDERED: SODIUM CHLORIDE 0.9% 100 ML BAG ONE (13:41)
[2016-12-25] MEDS ORDERED: MIDAZOLAM 2 MG/2 ML VIAL ONE (13:41)
[2016-12-25] MEDS ORDERED: TEMAZEPAM 15 MG CAP PO PRN (16:08)
[2016-12-25] MEDS ORDERED: NALOXONE 0.4 MG/ML 1 ML VIAL IV PRN (16:08)
[2016-12-25] MEDS ORDERED: BISACODYL 10 MG SUPP RECTAL PRN (16:08)
[2016-12-25] MEDS ORDERED: ONDANSETRON 4 MG/2 ML VIAL IVP PRN (16:08)
[2016-12-25] MEDS ORDERED: NA PHOS,M-B/NA PHOS,DI-BA 133 ML ENEMA RECTAL PRN (16:08)
[2016-12-25] MEDS ORDERED: HYDROcodone/APAP 7.5-325MG 1 EACH TAB PO PRN (16:08)
[2016-12-25] MEDS ORDERED: MAGNESIUM HYDROXIDE 2,400 MG/10 ML CUP PO PRN (16:08)
[2016-12-25] MEDS ORDERED: ACETAMINOPHEN TAB 325 MG TAB PO PRN (16:08)
[2016-12-25 16:27] LABS: Glucose,Whole Blood 185 mg/dL (75-99)
--- NOTE | 2016-12-25 16:36 | XR ---
EXAMINATION TYPE: XR knee limited LT DATE OF EXAM: 12/25/2016 4:30 PM COMPARISON: NONE HISTORY: 61-year-old male evaluation for postoperative abnormality and alignment TECHNIQUE: 2 views FINDINGS: Images show placement of left total knee arthroplasty. Alignment is grossly anatomic. Both distal fem oral and proximal tibial components of the prosthesis appear well seated without periprosthetic fract ure. Anterior soft tissue swelling with soft tissue gas as well as intra-articular air compatible wit h recent operation. IMPRESSION: Uncomplicated postoperative appearance left total knee arthroplasty.
--- NOTE | 2016-12-25 16:56 | P.OP ---
Date of Procedure: 12/25/16 Procedure(s) Performed: PREOPERATIVE DIAGNOSIS: Left knee severe osteoarthritis with genu varum POSTOPERATIVE DIAGNOSIS: Left knee severe osteoarthritis with genu varum OPERATION: Left knee cemented total replacement arthroplasty. ANESTHESIA: Spinal ESTIMATED BLOOD LOSS: Less than 50 ml. BRIM WELT SEWING MACHINE OPERATOR: Alexandra Lackey PA-C (assistance with: patient positioning, retraction, exposure, hemostasis, leg positioning, implantation, irrigation, closure, dressing) COMPLICATIONS: None apparent. COMPONENTS IMPLANTED: Persona system from [employer] (metal on polyethylene synthetic articulation) INDICATIONS: Mr. Matias is a 61-year-old male with a history of left knee osteoarthritis. He has undergone conservative management including arthroscopy of the knee without significant relief. I suspect that he in addition to arthritis of the knee, also has contributory symptomatology from his ipsilateral hip and lumbar spine. At this point however, he wishes to proceed with knee replacement. The operation of knee replacement has been discussed at length in the office, as well as potential risks and complications. These are inclusive of, but not limited to: bleeding, infection, scarring, discomfort, blood vessel and nerve damage, need for further surgery, failure to relieve symptoms, persistence, recurrence, or worsening of problems, loosening, dislocation, wear, blood clot, pulmonary embolism, , gait dysfunction, stiffness, and other risks as discussed in the office. The patient elects to proceed and the consent form has been signed. PROCEDURE: The patient was taken to the operating room and positioned on the operating room table in the supine position. Anesthesia was initiated. Care was taken to make sure that all pressure points were adequately padded. The operative lower extremity was prepped and draped in the usual aseptic fashion using ChloraPrep. Ioban drape was used for the case and the patient received intravenous antibiotics within one hour of the incision. A pneumotourniquet and leg meeks were used for the case. The limb was exsanguinated with an Esmarch bandage and the tourniquet was inflated to 350 mmHg. Time-out was called confirming the patient's identity, side, procedure and administration of antibiotics. The incision was then created midline directly over the knee, carried down through skin and into the subcutaneous tissues and down to fascia. Full thickness subcutaneous medial flap was developed. Medial parapatellar arthrotomy was performed and the interior of the knee was inspected. There was end-stage osteoarthritis of the knee with a mild to moderate genu varum type deformity. The fat pad was excised and proximal medial release on the tibia was completed using meticulous dissection and a curved osteotome. The anterior cruciate ligament was taken down. Note was made of significant attrition of the anterior and significant degenerative appearance of the posterior cruciate ligaments. The exposure was excellent. The knee was flexed 90 degrees and the patella was everted. A spot was chosen on the femur approximately 1 cm anterior to the posterior cruciate ligament insertion and an intramedullary hole was created within the femur. The intramedullary guide was then set to 5 degrees of valgus. The distal cutting block was attached and pinned into position. An appropriate amount of distal femoral resection was set. The oscillating saw was then used to make the distal femoral cut. This cut was confirmed to be flat with the flat end of an osteotome. The retractors were placed around the tibia and the tibial surface was addressed. The angle and depth of resection was adjusted using an extramedullary cutting guide. The guide had a built-in 3 degree posterior slope cut. Once the cutting guide was adjusted appropriately and in line with the axis of the tibia and confirmed to be in good position in relation to the second metatarsal and transmalleolar axis, the tibial cut was then created with protection of the posterior neurovascular structures and the collateral ligaments. The tibial cut surface was removed and sized. Femoral sizing was then accomplished using anterior referencing. Care was taken to analyze the posterior condyles for signs of deficiency or severe wear, and adjustments to the guide were made, as appropriate. 3 degree external rotation pins were placed. The cutting jig for the femur was applied to these pins. The planned cuts were further analyzed prior to performing them with the oscillating saw. No femoral notching was produced. Bone fragments were removed and the cut surfaces were finished, as necessary, with a reciprocating saw. Spacer block technique was then used to confirm that the flexion and extension gaps were equal. Soft tissue releases and adjustment of the tibial and/or femoral cuts were made, as necessary, until the gaps were equal. This included release of the posterior cruciate ligament, which was tight in this patient and , if left unreleased, would have resulted in poor kinematics and possibly early loosening. The femur was then further finished for a posterior cruciate ligament substituting component. Patellar resurfacing was performed using a reamer. The size of the required patellar component was estimated and the patellar surface was then reamed down to a residual thickness which would recreate the pala thickness with the component. The placement of the patellar component was influenced by the degree of patellar subluxation, if any, noted on the preoperative x-rays. Prior to placing trial components, anesthetic solution consisting of ropivicaine with epinephrine, ketorolac, and clonidine was injected carefully and methodically in a grid pattern using aspiration technique into the soft tissue around the knee circumferentially, starting with the deeper tissues first and progressing to fascia, and then finally the skin/subcutaneous tissue. Particular care was taken when injecting the posterior capsule. The trial components were inserted. The tibial tray was allowed to self center and the patella was noted to track very well. The position of the tibial component was marked and the tibia was then finished for a stemmed tibial component. Cement was mixed on the back table and applied to the final components. Trial components were removed and the cut surfaces of the bone were pulse lavaged thoroughly and dried. Cement was then applied to the tibial surface and pressurized into the surface using finger pressurization technique. The tibial component was then applied and excess cement was removed after it was impacted securely and noted to be flush with the cut surface. In similar fashion, the cement was applied to the cut femoral surface, pressurized in using finger pressurization and the component was impacted into place. Excess cement was removed. The polyethylene spacer was then implanted and locked into position. The patellar component was then applied in similar technique and a patellar clamp was used to hold the patella in place as the cement hardened. Once the cement had fully hardened, the knee was reinspected. Any other cement extrusion was removed and final kinematic testing showed range of motion from 0 to 130 degrees with excellent stability, both medially and laterally and appropriate alignment of the leg. Patellar tracking was excellent. The knee was then thoroughly pulse lavaged with normal saline. The tourniquet was deflated and hemostasis was obtained with electrocautery and IV tranexamic acid, 1 g given prior to inflation of the tourniquet and another gram given at the time of closure. Closure was with #2 Ethibond in the fascia and supplemented with #2 Quill, 2-0 Vicryl suture was used for the subcutaneous tissues and 3-0 Quill for the skin. Dermabond/Steri-Strips were then applied. A lightly compressive dressing was applied using Webril and an Alex wrap. The patient was then transferred to [facility] and taken to the recovery room in stable condition. Sponge and needle counts were correct.
[2016-12-25] MEDS: HYDROcodone/APAP 7.5-325MG 1 EACH TAB PO PRN (20:14)
[2016-12-25] MEDS ORDERED: clonazePAM 0.5 MG TAB PO PRN (20:59)
[2016-12-25] MEDS ORDERED: AMITRIPTYLINE HCL 10 MG TAB PO SCH (21:00)
[2016-12-25] MEDS ORDERED: SENNOSIDES-DOCUSATE SODIUM 1 EACH TAB PO SCH (21:00)
[2016-12-25] MEDS ORDERED: ATORVASTATIN 40 MG TAB PO SCH (21:00)
[2016-12-25] MEDS: HYDROmorphone 1 MG/ML 1 ML SYRINGE IVP PRN (22:35)
[2016-12-25 22:49] LABS: Glucose,Whole Blood 329 mg/dL (75-99)
[2016-12-25] MEDS: ASPIRIN 325 MG TAB PO SCH (23:17)
[2016-12-25] MEDS: INSULIN LISPRO (humaLOG) 300 UNIT/3 ML VIAL SQ SCH (23:18)
[2016-12-25] MEDS: metFORMIN 500 MG TAB PO SCH (23:18)
[2016-12-25] MEDS: LACTATED RINGERS 1,000 ML IV SCH (23:44)
[2016-12-26] MEDS: GABAPENTIN 300 MG CAP PO SCH ×2 (00:21→08:48)
[2016-12-26] MEDS: LACTATED RINGERS 1,000 ML IV SCH ×2 (00:22→14:10)
[2016-12-26] MEDS: ceFAZolin 2 GM in SODIUM CHLORIDE 0.9% 100 ML IVPB SCH ×2 (00:45→08:59)
[2016-12-26] MEDS: HYDROcodone/APAP 7.5-325MG 1 EACH TAB PO PRN ×3 (01:45→14:06)
[2016-12-26] MEDS: HYDROmorphone 1 MG/ML 1 ML SYRINGE IVP PRN ×2 (05:45→05:49)
[2016-12-26 07:29] LABS: Basophils % (A) 0 %; CH 29.1; CHCM 34.3; Eosinophils % (A) 0 %; HCT 33.5 % (39.0-53.0); HDW 3.23; HGB 11.8 gm/dL (13.0-17.5); Luc # (Auto) 0.27; Luc % (Auto) 2; Lymphocytes # (A) 1.1 k/uL (1.0-4.8); Lymphocytes % (A) 6 %; MCHC 35.2 g/dL (31.0-37.0); MCV 85.1 fL (80.0-100.0); Monocytes # (A) 0.9 k/uL (0-1.0); Monocytes % (A) 6 %; Neutrophils % (A) 86 %; RBC 3.94 m/uL (4.30-5.90); RDW 13.9 % (11.5-15.5); WBC 16.3 k/uL (3.8-10.6); WBC (Perox) 16.18
[2016-12-26 08:20] VITALS: BP 127/59; PULSE 94; RESP 17; TEMP 98
[2016-12-26 08:45] LABS: Glucose,Whole Blood 188 mg/dL (75-99)
[2016-12-26] MEDS: metFORMIN 500 MG TAB PO SCH (08:49)
[2016-12-26] MEDS: ASPIRIN 325 MG TAB PO SCH (08:49)
[2016-12-26] MEDS: INSULIN LISPRO (humaLOG) 300 UNIT/3 ML VIAL SQ SCH ×2 (08:51→12:42)
[2016-12-26] MEDS: hydrOXYzine PAMOATE 25 MG CAP PO PRN ×2 (09:00→14:05)
[2016-12-26] MEDS ORDERED: amLODIPine 5 MG TAB PO SCH (09:00)
[2016-12-26] MEDS ORDERED: MELOXICAM 7.5 MG TAB PO SCH (09:00)
--- NOTE | 2016-12-26 09:28 | P.PN ---
Subjective Principal diagnosis: Status post left total knee arthroplasty This is a pleasant 61-year-old gentleman who is status post left total knee arthroplasty. Today's postoperative day #1. The patient is seen and evaluated at bedside. His pain is under fair control. He is not been up with physical therapy yet today. Objective - Vital Signs Vital signs: Vital Signs Temp 98 F 12/26/16 07:00 Pulse 94 12/26/16 07:00 Resp 17 12/26/16 07:00 BP 127/59 12/26/16 07:00 Pulse Ox 93 L 12/26/16 07:00 Intake & Output 12/25/16 12/26/16 12/26/16 18:59 06:59 18:59 Intake Total 1300 1200 Output Total 100 Balance 1200 1200 Weight 95.254 kg Intake: IV 1300 1200 Lactated Ringers 1,000 ml 1200 @ 100 mls/hr IV .Q10H REBECCA Rx#:[id number] Output: Estimated Blood Loss 100 Other: Voiding Method Toilet Urinal # Voids 2 - Exam The patient does not appear in acute distress. Alert and orientated 3. Dressing is clean dry and intact. Incision appears fine with no erythema or active drainage. Calf is soft and nontender. Good foot and ankle motion without difficulty. Sensation and circulatory status is intact. - Labs CBC & Chem 7: 12/26/16 07:00 Labs: Abnormal Lab Results - Last 24 Hours (Table) 12/25/16 12/25/16 12/25/16 Range/Units 11:19 16:25 22:47 WBC (3.8-10.6) k/uL RBC (4.30-5.90) m/uL Hgb (13.0-17.5) gm/dL Hct (39.0-53.0) % Neutrophils # (1.3-7.7) k/uL POC Glucose (mg/dL) 128 H 185 H 329 H (75-99) mg/dL 12/26/16 12/26/16 Range/Units 07:00 08:43 WBC 16.3 H (3.8-10.6) k/uL RBC 3.94 L (4.30-5.90) m/uL Hgb 11.8 L (13.0-17.5) gm/dL Hct 33.5 L (39.0-53.0) % Neutrophils # 14.0 H (1.3-7.7) k/uL POC Glucose (mg/dL) 188 H (75-99) mg/dL Assessment and Plan (1) Primary osteoarthritis of left knee Status: Acute (2) Status post total left knee replacement Status: Acute Plan: Continue with routine postoperative care. Physical therapy and pain control. Anticipate discharge to home with home care tomorrow. If patient is doing well with physical therapy, he may be discharged home later this afternoon.
[2016-12-26 11:57] LABS: Glucose,Whole Blood 180 mg/dL (75-99)
[2016-12-26] MEDS ORDERED: MULTIVITAMINS, THERA 1 EACH TAB PO SCH (12:00)
[2016-12-31] MEDS ORDERED: ERGOCALCIFEROL 50,000 UNIT CAP PO SCH (09:00)
== END 2016-12-26 15:46 | disposition home health service (06) | DRG 470 ==
LOC: 2ORMAIN 10:46 → 3SUR 16:05
PROVIDERS: ADMIT Orthopaedic Surgery; ATTEND Orthopaedic Surgery
PROC: 0SRD0J9 Replacement of Left Knee Joint with Synthetic Substitute, Cemented, Open Approach (ICD-10-PCS; principal; 2016-12-25 12:30)
DX: M17.12 Unilateral primary osteoarthritis, left knee (principal); I10 Essential (primary) hypertension; M21.162 Varus deformity, not elsewhere classified, left knee; G89.29 Other chronic pain; E11.9 Type 2 diabetes mellitus without complications; M54.9 Dorsalgia, unspecified; E78.5 Hyperlipidemia, unspecified; Z83.3 Family history of diabetes mellitus; Z96.641 Presence of right artificial hip joint; Z79.84 Long term (current) use of oral hypoglycemic drugs; Z79.891 Long term (current) use of opiate analgesic; Z79.899 Other long term (current) drug therapy; Z79.1 Long term (current) use of non-steroidal anti-inflammatories (NSAID)
CPT/HCPCS: 83036; 85025; 88300

== ENCOUNTER → 2017-01-01 | Outpatient (CLI) | payer OTHER ==
--- NOTE | 2017-01-01 20:02 | US ---
EXAMINATION TYPE: US VENOUS DOPPLER DUPLEX LE LT DATE OF EXAM: 01/01/2017 7:15 PM COMPARISON: NONE CLINICAL HISTORY: Left knee replacement x1 week ago, pain and swelling . SIDE PERFORMED: Left TECHNIQUE: The lower extremity deep venous system is examined utilizing real time linear array sonog kerry with graded compression, doppler sonography and color-flow sonography. VESSELS IMAGED: External Iliac Vein (EIV) Common Femoral Vein Deep Femoral Vein Greater Saphenous Vein * Femoral Vein Popliteal Vein Small Saphenous Vein * Proximal Calf Veins (* superficial vessels) LEFT LOWER EXTREMITY FINDINGS: Negative for direct or indirect evidence for DVT. Grayscale, color doppler, spectral doppler imaging performed of the deep veins of the lower extremities. There is normal flow, compressibility, vascul ar waveforms bilaterally. IMPRESSION: NEGATIVE FOR DEEP VENOUS THROMBOSIS LEFT LOWER EXTREMITY.
== END | disposition home or self-care (01) ==
LOC: RADUSMAIN 18:12
PROVIDERS: ATTEND Orthopaedic Surgery
DX: I80.9 Phlebitis and thrombophlebitis of unspecified site (principal); Z47.1 Aftercare following joint replacement surgery

== ENCOUNTER → 2019-11-18 | Outpatient (CLI) | payer MEDICARE, OTHER ==
--- NOTE | 2019-11-18 10:58 | MR ---
EXAMINATION TYPE: MR lumbar spine wo con DATE OF EXAM: 11/18/2019 COMPARISON: CT 05/07/2012 HISTORY: Chronic LBP, BLE radic TECHNIQUE: Multiplanar, multisequence images of the lumbar spine were acquired. L1-L2: Posterior extension endplate disc complex causes mild anterior mass effect on the thecal sac. There is some facet arthropathy change. No significant spinal stenosis or foraminal encroachment. L2-L3: Posterior broad-based disc bulge, extension endplate disc complex effaces the anterior thecal sac. Circumference extension endplate disc complex encroaches upon the foramina the hypertrophic stephens ges of the facets causing some posterior lateral mass effect on the thecal sac and extends towards th e lateral recesses. Mild central stenosis. L3-L4: Posterior broad-based disc bulge causes mild anterior mass effect on the thecal sac. There is facet arthropathy with hypertrophy ligamentum flavum. Circumferential extension endplate disc complex encroaches mildly on the foramina. No significant spinal stenosis. L4-L5: Spinal stenosis is moderate to severe, trefoil appearance of the thecal sac on axial image 10 due to hypertrophic change of the facets causing posterior lateral aspect of the thecal sac contribut ed by the listhesis. Minimal posterior broad-based disc bulge effaces the anterior thecal sac. Listhe sis contributes to cause some foraminal encroachment, lateral extension endplate disc complex also pr esent. L5-S1: Posterior extension of endplate disc complex causes anterior mass effect on the thecal sac. Th ere is facet arthropathy with hypertrophy ligamentum flavum but no significant spinal stenosis. Circu mferential extension endplate disc complex results in bilateral foraminal encroachment. Lumbar segments are intact. No paraspinal masses are identified. Conus medullaris has a normal appe arance. Lumbar vertebral bodies show preserved height. There is anterolisthesis grade 1 L4-5, retroli sthesis grade 1 L5-S1. Multilevel spondylosis with endplate discogenic marrow signal changes present with associated loss of disc height and signal. Superior endplate T12 shows Schmorl's node formation. IMPRESSION: Generative disc disease, spinal stenosis, facet arthropathy, multilevel foraminal encroachment as charlotte cribed.
== END | disposition home or self-care (01) ==
LOC: RADMRIMAIN 09:01
PROVIDERS: ATTEND Family Medicine
DX: M48.061 Spinal stenosis, lumbar region without neurogenic claudication (principal); M51.36 Other intervertebral disc degeneration, lumbar region; M47.816 Spondylosis without myelopathy or radiculopathy, lumbar region
CPT/HCPCS: 72148

== ENCOUNTER → 2020-09-13 | Outpatient (CLI) | payer MEDICARE, OTHER ==
[2020-09-13 12:44] LABS: HCT 40.8 % (39.0-53.0); HGB 13.9 gm/dL (13.0-17.5); MCHC 34.1 g/dL (31.0-37.0); Mean Platelet Volume 6.9; Platelet Count 285 k/uL (150-450); RBC 4.63 m/uL (4.30-5.90); WBC 7.2 k/uL (3.8-10.6)
[2020-09-13 12:53] LABS: Sodium 139 mmol/L (137-145)
[2020-09-13 12:56] LABS: ALT 30 U/L (4-49); AST 30 U/L (17-59); African American GFR (CKD) >90 (>60 ml/min/1.73 sqM); Albumin 4.5 g/dL (3.5-5.0); Alkaline Phosphatase 69 U/L (38-126); Anion Gap 8 mmol/L; Blood Urea Nitrogen 16 mg/dL (9-20); Calcium 10.1 mg/dL (8.4-10.2); Carbon Dioxide 30 mmol/L (22-30); Chloride 101 mmol/L (98-107); Glucose 140 mg/dL (74-99); Non-African American GFR(CKD) >90 (>60 ml/min/1.73 sqM); Potassium 4.7 mmol/L (3.5-5.1); Total Bilirubin 0.4 mg/dL (0.2-1.3); Total Protein 8.8 g/dL (6.3-8.2)
[2020-09-13 12:58] LABS: INR 0.9 (<1.2); Partial Thromboplastin Time 26.6 sec (22.0-30.0); Prothrombin Time 10.1 sec (9.0-12.0)
[2020-09-13 13:16] LABS: Appearance,Urine Clear (Clear); Bilirubin,Urine Negative (Negative); Blood,Urine Negative (Negative); Color,Urine Yellow; Glucose,Urine (UA) 4+ (Negative); Ketones,Urine Trace (Negative); Leukocyte Esterase,Urine Negative (Negative); Nitrite,Urine Negative (Negative); Protein,Urine Trace (Negative); Specific Gravity,Urine 1.025 (1.001-1.035); Urobilinogen,Urine <2.0 mg/dL (<2.0)
== END | disposition home or self-care (01) ==
LOC: LABPAT 10:54
PROVIDERS: ATTEND Orthopaedic Surgery
DX: Z01.818 Encounter for other preprocedural examination (principal); Z01.812 Encounter for preprocedural laboratory examination; Z79.01 Long term (current) use of anticoagulants
CPT/HCPCS: 36415; 80053; 81003; 85027; 85610; 85730; 86850; 86900; 86901; 87070; 93005

== ENCOUNTER 2020-09-20 06:13 | Day surgery (SDC) | payer MEDICARE, OTHER ==
[2020-09-10 14:37] VITALS: BMI 31.4
[~2020-09-20 06:13] MED LIST changes: -ACETAMINOPHEN TAB 500 MG TAB PO ONE; +LACTATED RINGERS 1,000 ML IV SCH; +LIDOCAINE 1% (10MG/ML) FOR IV START INTRADERMA PRN; -MELOXICAM 7.5 MG TAB PO ONE; -TRANEXAMIC ACID 1,000 MG in SODIUM CHLORIDE 0.9% 100 ML IVPB ONE; +TRANEXAMIC ACID 1,000 MG in SODIUM CHLORIDE 0.9% 100 ML IVPB PRN; -ceFAZolin 2 GM in SODIUM CHLORIDE 0.9% 100 ML IVPB ONE
[2020-09-20] MEDS ORDERED: LACTATED RINGERS 1,000 ML IV ONE (06:43)
[2020-09-20 06:55] LABS: Glucose,Whole Blood 112 mg/dL (75-99)
[2020-09-20] MEDS ORDERED: DEXAMETHASONE SOD PHOSPHATE 4 MG/ML 1 ML VIAL IVP ONE (06:58)
[2020-09-20] MEDS ORDERED: HYDROmorphone 0.5 MG/0.5 ML SYRINGE IVP PRN ×2 (07:00→09:46)
[2020-09-20] MEDS: ROPIVACAINE/EPI/CLONIDINE/KET 50 ML SYRINGE MISCELLANE PRN ×2 (07:40→09:09)
[2020-09-20] MEDS ORDERED: TRANEXAMIC ACID 1,000 MG/10 ML VIAL ONE (07:46)
[2020-09-20] MEDS ORDERED: PHENYLEPHRINE 10 MG/ML VIAL ONE (07:46)
[2020-09-20] MEDS ORDERED: PROPOFOL 10 MG/ML 20 ML VIAL IV ONE (07:46)
[2020-09-20] MEDS ORDERED: MIDAZOLAM 2 MG/2 ML VIAL ONE (07:46)
[2020-09-20] MEDS ORDERED: fentaNYL (PF) 50 MCG/ML 2 ML AMP ONE (07:46)
[2020-09-20] MEDS ORDERED: SODIUM CHLORIDE 0.9% 100 ML BAG ONE (07:46)
[2020-09-20] MEDS ORDERED: LIDOCAINE 1% INJ 10MG/ML (20 ML MDV) ONE (07:46)
[2020-09-20] MEDS ORDERED: ceFAZolin 3,000 MG in SODIUM CHLORIDE 0.9% IRRIGATIO 3,000 ML IRRIGATION ONE (07:51)
--- NOTE | 2020-09-20 09:19 | P.OP ---
Date of Procedure: 09/20/20 Procedure(s) Performed: PREOPERATIVE DIAGNOSIS: Left hip severe osteoarthritis POSTOPERATIVE DIAGNOSIS: Left hip severe osteoarthritis OPERATION: Left hip total replacement arthroplasty (uncemented implantation with metal on polyethylene articulation). ANESTHESIA: Spinal ESTIMATED BLOOD LOSS: 150 ml. SENIOR MEDICAL WRITER: Alexandra Lackey PA-C (assistance with: patient positioning, retraction, exposure, hemostasis, leg positioning, implantation, irrigation, closure, dressing) COMPLICATIONS: None apparent. COMPONENTS IMPLANTED: Ascencion continuum acetabular cup with cluster holes; continuum longevity 15 elevated liner, 32 mm id; Ascencion VerSys Fiber Metal stem; VerSys 32 mm femoral head with 0 mm neck length extension INDICATIONS: Mr. Matias is a 65-year-old male with significant end-stage osteoarthritis involving the left hip and commensurate severe symptoms. He has already successfully undergone right hip replacement approximately 5 years ago. He presents to the operating room today for total hip replacement. I have discussed the steps of the operation as well as potential risks and compl ications as being inclusive of, but not limited to: Leading, infection, scarring, discomfort, or vessel and/or nerve damage, need for further surgery, loosening, dislocation, wear, osteolysis, limb length inequality, fracture, blood clot, pulmonary embolism, , persistent limp, and other risks. He currently has no significant limb length inequality on preoperative assessment. The patient is aware these risks and wishes to proceed with surgery and has signed a consent form. PROCEDURE: After appropriate consent was obtained, the patient was taken to the operating room and placed in supine position. Spinal anesthetic was administered and after confirmation of adequate anesthesia, the patient was placed into the lateral decubitus position with the left side up. Care was taken to make sure that all pressure points were adequately padded and he was stabilized to the table with a [place] hip positioner. The left hip was prepped and draped in the usual aseptic fashion using a combination of ChloraPrep and alcohol. Ioban drape was used for the case and the patient received intravenous antibiotics prior to the incision. "Time out" was called, confirming patient identity, side, proc edure, availability of implants and administration of antibiotics. The incision was created directly over the greater trochanter and carried slightly posteriorly for a posterior approach to the hip. The incision was then deepened down to subcutaneous tissue and fascia sandie. Fascia sandie was split in line with the incision and split proximally along the fibers of the gluteus gisele. The underlying fibers of the muscle were teased apart using finger dissection and bleeding vessels were picked up and coagulated. Retractor was then placed posteriorly consisting of a blunt [place]. The short external rotators and capsule were exposed using good visualization of the attachment of the external rotators to the femur was established. The short external rotators and capsule were released using electrocautery from their femoral attachments. A hockey stick shaped incision was created in the capsule. Joint fluid was evacuated and the patient's hip was able to be dislocated fairly easily. The patient's femoral head was severely arthritic with eburnated bone present and a 360 degrees pérez of osteophytes. The femoral neck cut was created approximately 1 cm superior to the lesser trochanter using a reciprocating saw. The femoral head and neck fragment was removed and attention was then directed to the acetabulum. An anterior acetabular retractor was applied followed by posterior retraction of the capsule with a Meyerding retractor. This afforded good visualization into the acetabular cavity. Soft tissue was removed and residual cartilage within the acetabular vault was removed using a curette. Labrum was removed using a long-handled knife. Attention was then directed to reaming. The size 44 reamer was used first, followed by increasing increments until the final size reamer was used. Please see the implantation sheet for exact sizes used for the components. Once the final reamer had been utilized to expand the socket it was noted that there was a good supportive bone around the acetabular socket and no further reaming needed to be performed. The trial the same size as the last reamer used was then impacted into the acetabular vault and found to have good fit. The acetabular component, one size (2mm) greater than the trial was then called for. The cluster holes were placed posteriorly and the component was impacted in a position of approximately 40 degrees abduction and 20 degrees anteversion. This matched this patient's nikolski anteversion and it was noted that the cup had excellent stability without need for additional screw fixation. Attention was then directed to the acetabular liner. The anteversion and abduction angle of the component was noted to be very good. A 15 elevated liner was used and locked into position. Osteophytes around the posterior and inferior aspect of the acetabulum were trimmed as necessary to prevent any impingement. Attention was then directed back to the proximal femur. Retractors were placed around the proximal femur and box osteotome was used followed by canal finder and trochanteric reamer. Cylindrical reaming was performed. Progressive broaching was then performed starting with a #10 broach and progressing final size, in a position of 15 degrees anteversion. [place] anteversion was within 5 degrees of stem position. The final size broach had excellent fit and fill of the patient's metaphysis and diaphysis. Trial reduction was then performed starting with size 32 mm femoral head and various neck combination of stability, limb length equality, and soft tissue tension. Trial components were then removed. The canal was lavaged and the final size femoral stem component was impacted into position. The implant fit very well and had excellent stability. The femoral head was then impacted onto the [place] taper. Blood and debris were removed from the acetabular component and the hip was then reduced and checked for stability, limb length and soft tissue tension. These parameters found to be satisfactory, the wound was then thoroughly irrigated with normal saline. Final hemostasis was obtained using electrocautery and IV tranexamic acid, 1 g given at the time of prepping and draping, and another 1 g given at the time of closure. Local anesthetic solution consisting of ropivacaine with epinephrine, clonidine, and ketorolac was also used throughout the case targeting the capsule, fascia, and skin. Closure of the capsule was performed meticulously using #3 Vicryl suture. Four [id number] sutures were placed in the posterior capsule along with repair of the external rotators. The fascia sandie was then repaired using combination of #3 Vicryl suture in interrupted fashion and Quill and running fashion. 2-0 Vicryl suture was used for the subcutaneous tissues and 3-0 Quill for the skin. Dermabond or Steri-Strips were then applied. The patient tolerated the procedure well. There were no complications and the wound bed was dry and there was no need for drain placement. Sterile dressing was then applied and the patient was carefully removed from the operating room table, placed on the stretcher and was taken to the recovery room in stable condition. Sponge and needle counts were correct.
[2020-09-20] MEDS ORDERED: NALOXONE 0.4 MG/ML 1 ML VIAL IV PRN (09:46)
[2020-09-20] MEDS ORDERED: HYDROcodone/APAP 5-325MG 1 EACH TAB PO PRN (09:46)
[2020-09-20] MEDS ORDERED: HYDROmorphone 0.2 MG/1 ML SYRINGE IVP PRN (09:46)
[2020-09-20] MEDS ORDERED: MAGNESIUM HYDROXIDE 2,400 MG/10 ML CUP PO PRN (09:46)
[2020-09-20 10:04] LABS: Glucose,Whole Blood 157 mg/dL (75-99)
[2020-09-20] MEDS: LACTATED RINGERS 1,000 ML IV SCH ×2 (10:27→19:40)
--- NOTE | 2020-09-20 10:41 | XR ---
Bridget left hip HISTORY: Status post left hip arthroplasty Single frontal view of the left hip Patient is status post left hip arthroplasty. There is lucency in the soft tissues. There is anatomic alignment. IMPRESSION: Orthopedic follow-up.
[2020-09-20 10:50] VITALS: RESP 18
[2020-09-20 11:57] LABS: Glucose,Whole Blood 163 mg/dL (75-99)
[2020-09-20] MEDS: HYDROmorphone 0.5 MG/0.5 ML SYRINGE IVP PRN ×2 (13:39→19:50)
[2020-09-20] MEDS: HYDROcodone/APAP 7.5-325MG 1 EACH TAB PO PRN ×2 (15:48→23:13)
[2020-09-20 17:01] LABS: Glucose,Whole Blood 219 mg/dL (75-99)
[2020-09-20 20:31] LABS: Glucose,Whole Blood 211 mg/dL (75-99)
[2020-09-20] MEDS ORDERED: AMITRIPTYLINE HCL 10 MG TAB PO SCH (21:00)
[2020-09-20] MEDS ORDERED: ATORVASTATIN 40 MG TAB PO SCH (21:00)
[2020-09-20] MEDS ORDERED: SENNOSIDES-DOCUSATE SODIUM 1 EACH TAB PO SCH (21:00)
[2020-09-20] MEDS: SUCRALFATE 1 GM TAB PO SCH (21:42)
[2020-09-20] MEDS: GABAPENTIN 300 MG CAP PO SCH (21:42)
[2020-09-20] MEDS: ASPIRIN 81 MG PO SCH (21:42)
[2020-09-21] MEDS: LACTATED RINGERS 1,000 ML IV SCH (00:10)
[2020-09-21] MEDS: HYDROmorphone 0.5 MG/0.5 ML SYRINGE IVP PRN (03:06)
[2020-09-21] MEDS ORDERED: ROPIVACAINE 246.25 MG, EPINEPHrine 0.5 MG, KETOROLAC 30 MG, cloNIDine HCL/PF 80 MCG, WA... MISCELLANE PRN ×5 (05:00)
[2020-09-21] MEDS: HYDROcodone/APAP 7.5-325MG 1 EACH TAB PO PRN ×2 (05:39→11:10)
[2020-09-21] MEDS ORDERED: LEVOTHYROXINE 75 MCG TAB PO SCH (06:30)
[2020-09-21 06:49] LABS: Glucose,Whole Blood 129 mg/dL (75-99)
[2020-09-21 06:53] LABS: Basophils % (A) 0 %; Eosinophils % (A) 0 %; HCT 33.9 % (39.0-53.0); HGB 11.6 gm/dL (13.0-17.5); Lymphocytes # (A) 1.9 k/uL (1.0-4.8); Lymphocytes % (A) 14 %; MCH 30.1 pg (25.0-35.0); MCHC 34.3 g/dL (31.0-37.0); MCV 87.6 fL (80.0-100.0); Mean Platelet Volume 7.2; Monocytes % (A) 8 %; Neutrophils # (A) 10.4 k/uL (1.3-7.7); Neutrophils % (A) 77 %; Platelet Count 266 k/uL (150-450); RBC 3.86 m/uL (4.30-5.90); RDW 13.2 % (11.5-15.5); WBC 13.5 k/uL (3.8-10.6)
[2020-09-21 07:26] VITALS: BP 131/74; PULSE 80; TEMP 97.8
[2020-09-21] MEDS ORDERED: PANTOPRAZOLE 40 MG TABLET PO SCH (07:30)
[2020-09-21] MEDS: SUCRALFATE 1 GM TAB PO SCH (07:47)
[2020-09-21] MEDS: GABAPENTIN 300 MG CAP PO SCH (07:47)
[2020-09-21] MEDS: ASPIRIN 81 MG PO SCH (07:47)
[2020-09-21] MEDS ORDERED: amLODIPine 10 MG TAB PO SCH (09:00)
[2020-09-21] MEDS ORDERED: MELOXICAM 7.5 MG TAB PO SCH (09:00)
--- NOTE | 2020-09-21 09:33 | P.DS ---
Providers Expected date of discharge: 09/21/20 Attending physician: Castro Neal Consults: 09/20/20 09:46 Consult Physician Routine Consulting Provider: Chuckie Cabello Consult Reason/Comments: Medical management Do you want consulting provider notified?: Yes Primary care physician: Cheryle Cabello [facility] Course: This is a 65-year-old male who was last seen in our office with complaint of continued left hip pain. The patient has a known history of degenerative arthritis of the lfet hip and presents to discuss surgical options. After discussion and consideration the patient elects to proceed with total left hip arthroplasty. He is seen preoperatively by Dr. Cabello and cleared for surgery. The patient is admitted to [facility] for total left hip arthroplasty. The procedure is performed without complication or sequelae. The patient is doing well postoperatively. Vital signs and postoperative labs are stable. Patient is seen and examined bedside this morning. Patient is up in the bedside chair. He states he has been ambulating the halls with a walker with minimal assistance. The pain in his left hip is well-controlled at this time. He is tolerating his diet well. He is voiding without issue. He has not yet had a bowel movement postoperatively, although he denies abdominal pain. He denies chest pain, shortness breath, nausea, vomiting, fevers, chills, numbness or tingling of her extremity. He has no complaints this morning is comfortable being discharged home today. Vital signs stable. On examination, the patient is sitting up in the chair in no acute distress. He is alert and oriented 3. On inspection of the left hip, there is a clean, dry, intact Optifoam dressing in place. There is no bleeding or drainage through the dressing. Thigh is soft and compressible. Patient has good range of motion of the left ankle and toes. Motor and sensory function intact of the left lower extremity. Left lower extremity is warm and well-perfused with brisk capillary refill distally. Calf is soft and nontender to palpation. The patient is discharged to home today in good condition, pending medical clearance. Please see discharge orders. Please refer to the med rec for accurate list of medications. Patient Condition at Discharge: Stable Plan - Discharge Summary Discharge Rx Participant: No New Discharge Prescriptions: Elpidio Aspirin [Adult Low Dose Aspirin EC] 81 mg PO BID #1 tablet.dr Hookeroxicam [Mobic] 1 - 2 tab PO DAILY PRN #60 tab PRN Reason: Pain HYDROcodone/APAP 7.5-325MG [Mather 7.5-325] 1 - 2 tab PO Q6HR PRN #32 tab PRN Reason: Pain Sennosides-Docusate Sodium [Senokot-S] 1 tab PO BID #60 tablet No Action Gabapentin 600 mg PO TID traMADol HCL [Ultram] 50 mg PO TID Amitriptyline HCl [Elavil] 10 mg PO HS Simvastatin [Zocor] 80 mg PO HS Ergocalciferol (Vitamin D2) [Vitamin D2] 50,000 unit PO SA metFORMIN HCL [Glucophage] 1,000 mg PO DAILY amLODIPine [Norvasc] 10 mg PO QAM Sucralfate [Carafate] 1 gm PO TID Celecoxib [CeleBREX] 200 mg PO DAILY Pantoprazole [Protonix] 40 mg PO DAILY Levothyroxine Sodium [Synthroid] 75 mcg PO QAM Discharge Medication List Amitriptyline HCl [Elavil] 10 mg PO HS 08/29/16 [History] Ergocalciferol (Vitamin D2) [Vitamin D2] 50,000 unit PO SA 08/29/16 [History] Gabapentin 600 mg PO TID 08/29/16 [History] Simvastatin [Zocor] 80 mg PO HS 08/29/16 [History] traMADol HCL [Ultram] 50 mg PO TID 08/29/16 [History] metFORMIN HCL [Glucophage] 1,000 mg PO DAILY 12/19/16 [History] Celecoxib [CeleBREX] 200 mg PO DAILY 08/17/17 [History] Pantoprazole [Protonix] 40 mg PO DAILY 08/17/17 [History] Sucralfate [Carafate] 1 gm PO TID 08/17/17 [History] amLODIPine [Norvasc] 10 mg PO QAM 08/17/17 [History] Levothyroxine Sodium [Synthroid] 75 mcg PO QAM 09/10/20 [History] Aspirin [Adult Low Dose Aspirin EC] 81 mg PO BID #1 tablet. 09/20/20 [Rx] HYDROcodone/APAP 7.5-325MG [Mather 7.5-325] 1 - 2 tab PO Q6HR PRN #32 tab 09/20/20 [Rx] Meloxicam [Mobic] 1 - 2 tab PO DAILY PRN #60 tab 09/20/20 [Rx] Sennosides-Docusate Sodium [Senokot-S] 1 tab PO BID #60 tablet 09/20/20 [Rx] Follow up Appointment(s)/Referral(s): Alexandra Lackey PAC [PHYSICIAN [employer]] - 09/30/20 1:45 pm (With Alexandra) Chuckie Cabello MD [STAFF PHYSICIAN] - 1 Week Activity/Diet/Wound Care/Special Instructions: 50% Wt bearing to LLE w walker. May shower 48h post op. Leave Optifoam dressing intact 7-10 days. Discharge Disposition: HOME WITH HOME HEALTH SERVICES
[2020-09-21 11:31] LABS: Glucose,Whole Blood 101 mg/dL (75-99)
== END 2020-09-21 13:00 | disposition home health service (06) ==
LOC: OR 06:13 → 4SSUR 09:38 → OR 09-21 13:00
PROVIDERS: ATTEND Orthopaedic Surgery
DX: M16.12 Unilateral primary osteoarthritis, left hip (principal); Z96.641 Presence of right artificial hip joint; I10 Essential (primary) hypertension; E78.5 Hyperlipidemia, unspecified; E11.9 Type 2 diabetes mellitus without complications; K21.9 Gastro-esophageal reflux disease without esophagitis; G89.4 Chronic pain syndrome; M53.86 Other specified dorsopathies, lumbar region; E03.9 Hypothyroidism, unspecified; Z79.890 Hormone replacement therapy; Z79.84 Long term (current) use of oral hypoglycemic drugs; Z79.899 Other long term (current) drug therapy; Z79.1 Long term (current) use of non-steroidal anti-inflammatories (NSAID); Z97.3 Presence of spectacles and contact lenses; Z96.652 Presence of left artificial knee joint; Z98.890 Other specified postprocedural states; Z83.3 Family history of diabetes mellitus
CPT/HCPCS: 97116; 97110; 97161; 85025; 88300; 73501; 27130; C1776; J1100; J0690 ×2; J2405; J1170 ×2; 86850; 86900; 86901

== ENCOUNTER → 2022-03-22 | Outpatient (CLI) | payer MEDICARE, OTHER ==
[2022-03-22 09:44] VITALS: BP 154/80; PULSE 88; RESP 18; TEMP 97.9
--- NOTE | 2022-03-22 09:47 | P.PAINPG ---
PQRS Measure Charge Sheet Comment: HISTORY OF PRESENT ILLNESS: 66 yr old male as a referral from Dr. Cheryle Cabello presents today with severe and chronic LBP secondary to DDD, disc bulges, spinal stenosis, neuroforaminal stenoses and facet arthropathy for evaluation. Patient states his pain level is 7 out of 10 in intensity, constant, 9 sensation in the lower aspect of his lumbar spine with radiation of pain to the bilateral lower extremities. Pain is worse in the morning or with weightbearing activity. Pain is relieved with medications (tramadol, Neurontin, Celebrex, Elavil), injections, heat, physical therapy in 2020, chiropractic treatments weekly over the last month, daily home stretching regimen, reclining and rest. PMH: Past Medical History: GERD, Hyperlipidemia, HTN, OA PSH: L MARIBEL, LESIs, BL Meniscal Repair, R MARIBEL (2016), L Knee Replacement, Colonoscopy, Circumcision SH: Negative x 3 FH: Sister- Lung CA. Mother- Cardiac Dysrhythmia/ . Father- CAD/ . All: NKDA Meds: See list REVIEW OF ORGAN SYSTEMS: CONSTITUTIONAL: No fevers or chills. No recent weight loss. NEUROLOGICAL: + numbness and tingling along the distal extremities. No seizure disorders or headaches. MUSCULOSKELETAL: + pain PSYCHIATRIC: Denies current depression or suicidal thoughts. Physical Examinations : Constitutional : Cooperative , not in acute distress . Neurologic : Cranial nerve II to XII intact. No focal neurological deficits. Psychiatric : alert & oriented x 3. Matching mood & appropriate affect. Judgment & insight intact. Musculoskeletal : Cervical Spine Motor strength in the deltoid and biceps: Normal right side. Normal Left side Motor strength biceps and the wrist extensors: Normal right side . Normal left side Motor strength in the triceps muscle: Normal right side. Normal left side Deep tendon reflexes: Normal at the biceps. Normal at Brachioradialis. Normal at triceps Vertebral body tenderness to deep palpation over Cervical facet loading test: positive bilaterally Spurling test: positive bilaterally Neck distraction test: positive bilaterally Alysha sign: positive bilaterally Lumbar spine Motor strength lower extremities ,thigh and legs 5/5 Right side , 5/5 Left side Deep tendon reflexes : Normal Knee Jerk. Normal Ankle Jerk Vertebral body tenderness over Lumbar facet Loading Test: +Right/ +Left over BL L4-L5, L5-S1 w paraspinal TTP Range of motion of the lumbar spine Flexion 30 degrees, extension 10 degrees Straight Leg Raise test: Left/ Right positive at 30 degree Lanette test: positive right / positive left. Severe tenderness over the Sacroiliac joint on the Right / Left sides Gaenslen test: positive bilaterally Seated flexion test: positive bilaterally. Sacral spine : Severe tenderness over the Sacroiliac joint: right side / left side Range of motion: Flexion of the lumbar spine <60 degrees Range of motion: Extension of the lumbar spine <20 degrees Gaenslen's Test positive Cornell's Test positive Lanette test: positive right side / left side Thigh Thrust Test Sacral Thrust Test Imaging: MRI without contrast of the Lumbar spine from 11/18/19 reviewed Assessment/ Plan : Lumbar stenosis, Lumbar DDD Recommendation of BL facet block of the medial branches L4-L5, L5-S1. May need a series of injections, up until RFA, for optimal pain relief. Risks, benefits of procedure discussed and patient verbalized understanding. Denies aspirin or anti- coagulant use. Admits to a medical history of diabetes. Protocol for discontinuation/ continuation of medications cole procedure discussed. All questions answered. I have spent greater than 30 minutes on patient care today. Dr De La Garza was available by phone for the evaluation of this patient. The time was used to review the medical records including relevant urine studies and Prescription history (MAPs), review of the available imaging, evaluation and examination of the patient, coordination of care with the medical staff and if applicable referring physicians, as well as creation of the medical record - Pain Location Bilateral Lower Buttock Non-Pharmacological Interventions: Chiropractic Treatment, Heat, Inactivity, Position/Reposition, Sitting, Stretching Pharmacological Interventions: Medication, Scheduled Medication PQRS Narrative: Smoking Status Never smoker Home Medications: Ambulatory Orders Amitriptyline HCl [Elavil] 10 mg PO HS 08/29/16 Ergocalciferol (Vitamin D2) [Vitamin D2] 50,000 unit PO SA 08/29/16 Gabapentin 600 mg PO TID 08/29/16 Simvastatin [Zocor] 80 mg PO HS 08/29/16 traMADol HCL [Ultram] 50 mg PO TID 08/29/16 metFORMIN HCL [Glucophage] 1,000 mg PO DAILY 12/19/16 Celecoxib [CeleBREX] 200 mg PO DAILY 08/17/17 Pantoprazole [Protonix] 40 mg PO DAILY 08/17/17 Sucralfate [Carafate] 1 gm PO TID 08/17/17 amLODIPine [Norvasc] 10 mg PO QAM 08/17/17 Levothyroxine Sodium [Synthroid] 75 mcg PO QAM 09/10/20 Aspirin [Adult Low Dose Aspirin EC] 81 mg PO BID #1 tablet. 09/20/20 HYDROcodone/APAP 7.5-325MG [[place]ven 7.5-325] 1 - 2 tab PO Q6HR PRN #32 tab 09/20/20 Meloxicam [Mobic] 1 - 2 tab PO DAILY PRN #60 tab 09/20/20 Sennosides-Docusate Sodium [Senokot-S] 1 tab PO BID #60 tablet 09/20/20 Controlled Substance Measures - Controlled Substance Measures Is patient prescribed a controlled substance at discharge?: No
== END ==
LOC: PNWHC3 08:52
PROVIDERS: ATTEND Specialist
DX: M51.36 Other intervertebral disc degeneration, lumbar region (principal); M48.061 Spinal stenosis, lumbar region without neurogenic claudication; M16.9 Osteoarthritis of hip, unspecified; E78.5 Hyperlipidemia, unspecified; I10 Essential (primary) hypertension; M19.90 Unspecified osteoarthritis, unspecified site
CPT/HCPCS: 99211

== ENCOUNTER → 2022-05-04 | Outpatient (CLI) | payer MEDICARE, OTHER ==
[2022-05-04 09:46] VITALS: BP 147/81; PULSE 85; RESP 16
--- NOTE | 2022-05-04 14:10 | P.PAINPG ---
PQRS Measure Charge Sheet Comment: A 66 yr old male with a history of severe and chronic low back pain secondary to lumbar degenerative disc diseases and lumbar spondylosis with facet arthropathy without myelopathy presents today for evaluation s/p MBB L4-L5, L5- S1 #1. Pt states he experienced 80% pain relief x 3-4 days s/p procedure. Pain level is currently at 7/10 in intensity, constant, localized in lower lumbar spine, grabbing in character w sharp/ shooting pain towards the BLEs. Pain is provoked every morning. Pain is alleviated with chiropractic treatments w last visit 2 wks ago, hot showers, home stretching regimen, medications, injections, repositioning and rest. Interventional pain procedures completed include BL MBB L3-L5 x1. Patient is currently on Tramadol, Neurontin, Elavil, Celebrex Patient denies any side effects of the medication(s), denies excessive drowsiness or sleepiness, denies suicidal ideation and reports that the current pain medication is helping to control the pain and improve activities of daily living. Patient denies any motor or sensory deficits. Patient denies any fever or night sweats, denies any change in the bowel movements or urination. Physical Examination: -Constitutional: Cooperative. Not in acute distress . - Neurologic: Cranial nerve II to XII intact. No focal neurological defici ts. - Psychatric: Alert & oriented x 3. Matching mood & appropriate affect. Judgment and insight intact. - Musculoskeletal: Cervical spine: Muscle bulk/ tone/ strength in the bilateral upper extremities normal Vertebral body tenderness to palpation over Spurling test positive Distraction test positive Facet loading test positive Thoracic spine Muscle bulk / tone/ strength in the bilateral paraspinal muscles normal Vertebral body tender to palpation over Facet loading test positive Lumbar spine: Motor bulk/ tone/ strength lower extremities , thigh and legs : 5/5 Deep tendon reflexes : Normal Knee Jerk. Normal Ankle Jerk . Vertebral body tenderness to palpation over Lumbar Facet Loading Test positive over BL L4-L5, L5-S1 w accompanying jump reflex upon palpation Straight Leg Raise: positive at 30 degrees right side/ left side Gaenslen's Test positive Sacral spine : Severe tenderness over the Sacroiliac joint: right side / left side Range of motion: Flexion of the lumbar spine <60 degrees Range of motion: Extension of the lumbar spine <20 degrees Gaenslen's Test positive Cornell's Test positive Lanette test: positive right side / left side Thigh Thrust Test Sacral Thrust Test Assessment and plan: Chronic low back pain secondary to lumbar degenerative disc disease , lumbar spondylosis with facet arthropathy without myelopathy Recommendation of BL MBB L4-L5, L5-S1 #2. Pt exhibited sufficient and optimal pain relief w diagnostic MBBs previously. Risks, benefits of procedure discussed and pt verbalized understanding. Denies anticoagulant use or medical history of diabetes. All questions answered. MAPS reviewed and it was appropriate. I have spent less than 30 minutes on patient care today. Dr De La Garza was available by phone for the evaluation of this patient. The time was used to review the medical records including relevant urine studies and Prescription history (MAPs), review of the available imaging, evaluation and examination of the patient, coordination of care with the medical staff and if applicable referring physicians, as well as creation of the medical record - Pain Location Lower Back Non-Pharmacological Interventions: Chiropractic Treatment, Environmental Control, Heat, Position/Reposition, Reduce Environmental Stimuli, Stretching Pharmacological Interventions: Block, Medication PQRS Narrative: Smoking Status Never smoker Hx Alcohol Use (MH) No Home Medications: Ambulatory Orders Amitriptyline HCl [Elavil] 10 mg PO HS 08/29/16 Ergocalciferol (Vitamin D2) [Vitamin D2] 50,000 unit PO SA 08/29/16 Gabapentin 400 mg PO TID 08/29/16 Simvastatin [Zocor] 80 mg PO HS 08/29/16 traMADol HCL [Ultram] 50 mg PO TID 08/29/16 metFORMIN HCL [Glucophage] 500 mg PO DAILY 12/19/16 Celecoxib [CeleBREX] 200 mg PO BID 08/17/17 Pantoprazole [Protonix] 40 mg PO DAILY 08/17/17 Sucralfate [Carafate] 1 gm PO TID 08/17/17 amLODIPine [Norvasc] 5 mg PO QAM 08/17/17 Levothyroxine Sodium [Synthroid] 75 mcg PO QAM 09/10/20 Pioglitazone [Actos] 30 mg PO DAILY 04/20/22 Controlled Substance Measures - Controlled Substance Measures Is patient prescribed a controlled substance at discharge?: No
== END ==
LOC: PNWHC3 09:07
PROVIDERS: ATTEND Specialist
DX: M47.816 Spondylosis without myelopathy or radiculopathy, lumbar region (principal); G89.29 Other chronic pain; M51.36 Other intervertebral disc degeneration, lumbar region
CPT/HCPCS: 99211

== ENCOUNTER 2022-06-02 07:04 | Day surgery (SDC) | payer MEDICARE, OTHER ==
[2022-06-01 13:23] VITALS: BMI 34.7
[~2022-06-02 07:04] MED LIST changes: -ONDANSETRON 4 MG/2 ML VIAL IVP ONE; -TRANEXAMIC ACID 1,000 MG in SODIUM CHLORIDE 0.9% 100 ML IVPB PRN
[2022-06-02 07:23] VITALS: TEMP 96.8
[2022-06-02 07:35] LABS: Glucose,Whole Blood 103 mg/dL (70-110)
[2022-06-02] MEDS ORDERED: MIDAZOLAM 2 MG/2 ML VIAL ONE (08:04)
[2022-06-02] MEDS ORDERED: fentaNYL (PF) 50 MCG/ML 2 ML AMP ONE (08:04)
[2022-06-02] MEDS ORDERED: ROPIVACAINE 5 MG/ML 20 ML AMPULE ONE (08:04)
[2022-06-02] MEDS ORDERED: methylPREDNISolone ACETATE 40 MG/ML 1 ML VIAL ONE (08:04)
--- NOTE | 2022-06-02 08:25 | P.PCN ---
Date of Procedure: 06/02/22 Procedure(s) Performed: PREOPERATIVE DIAGNOSIS : 1- Lumbar spondylosis with Facet Arthropathy without myelopathy . 2- Lumber degenerative disc disease POSTOPERATIVE DIAGNOSIS: 1- Lumbar spondylosis with Facet Arthropathy without myelopathy . 2- Lumber degenerative disc disease PROCEDURE: Diagnostic bilateral L3 , L4 , and L5 medial branch block under fluoroscopy guidance(fluoroscopy images available in the radiology Department ) ( To target the facet joint between bilateral L4-5 , and L5-S1 )# 2nd ANESTHESIA:, Monitored anesthesia care as per anesthesia department. . EBL: Minimal COMPLICATION: None PROCEDURE INDICATION: Chronic low back pain secondary to Facet arthropathy unresponsive to conservative treatment. PROCEDURE DESCRIPTION: the patient was seen and identified in the preop holding area , risks and benefits and possible complications of the procedure and alternative were discussed with the patient, and the patient agreed to proceed with the procedure and signed the consent and vital signs monitored during the procedure and fluoroscopy was used to maximize the benefit and accuracy of the needle placement, and sedation was given to decrease patient a nxiety, patient was taken to the procedure room and placed in prone position vital signs monitored in the back prepped with chlorhexidine X3 then under strict sterile technique using a right oblique fluoroscopy ,the junction of the transverse process and the superior articulating process of the right L3 , L4 , and L5 vertebra which corresponding to the fluoroscopy image of the eye of the Sharif dog on the block side for the medial branches and subsequently , after local infiltration of skin and subcu tissuies with Ropivacaine 0.5 % , one mL at each level ,then 22-gauge Quincke-type needles , 3 needle was used , each one of them placed at the junction of the base of the transverse process and the superior articular process at the appropriate level, and the needle was advanced until the periosteum contacted, needle placement confirmed with AP oblique and lateral view and after appropriate needle placement confirmed, and after negative aspiration for heme and CSF and there was no paresthesia 1-1/2 mL of Ropivacaine 0.5% mixed with 20 mg Depo-Medrol , then half mL injected at each level after negative aspiration the needle subsequently removed and the same procedure repeated for the left side at left side at L3 , L4 and L5 levels. At the end of the procedure and the needles removed and a bandage applied after the skin was cleaned the cleaning solution patient taken to recovery room in stable condition and monitors in the recovery room for 20-30 minutes and discharged home in stable condition after discharge criteria met and patient will follow up with the pain clinic in 2-4 weeks
[2022-06-02] MEDS ORDERED: IV FLUID CONTINUATION 1,000 ML IV ONE (08:28)
--- NOTE | 2022-06-02 08:52 | FL ---
Fluoroscopy HISTORY: Pain 8 seconds fluoroscopy time supplied to the referring clinician. 4 intraoperative C-arm images docume nt the procedure. See dictated report from anesthesia
[2022-06-02 08:58] VITALS: BP 160/85; PULSE 77; RESP 16
== END 2022-06-02 08:59 | disposition home or self-care (01) ==
LOC: ORPAIN 07:04
PROVIDERS: ATTEND Specialist
DX: M51.36 Other intervertebral disc degeneration, lumbar region (principal); G89.29 Other chronic pain; M47.816 Spondylosis without myelopathy or radiculopathy, lumbar region; E78.5 Hyperlipidemia, unspecified; I10 Essential (primary) hypertension; E11.9 Type 2 diabetes mellitus without complications; E07.9 Disorder of thyroid, unspecified; Z79.890 Hormone replacement therapy; Z79.84 Long term (current) use of oral hypoglycemic drugs; Z79.899 Other long term (current) drug therapy
CPT/HCPCS: 64493; 64494 ×2; J2250; J1030; J3010; J2795

== ENCOUNTER → 2022-06-19 | Outpatient (CLI) | payer MEDICARE, OTHER ==
[2022-06-19 10:58] VITALS: BP 146/87; PULSE 84; RESP 18; TEMP 98.5
--- NOTE | 2022-06-19 14:48 | P.PAINPG ---
PQRS Measure Charge Sheet Comment: A 67 yr old male with a history of severe and chronic low back pain secondary to lumbar degenerative disc diseases and lumbar spondylosis with facet arthropathy without myelopathy presents today for evaluation s/p BL MBB L4-L5, L5-S1 #1. Pt states he experienced 80% pain relief x 2 days s/p procedure. Pain level is currently at 8/10 in intensity, constant, localized in the lower lumbar spine, dull/ achy/ sharp/ shooting towards the BL glutes and BLEs. Pain is provoked by standing for periods of 15 min or more. Pain is alleviated with medications, heat, PT years ago, chiropractic treatments monthly which ended Apr 2022 due to no relief, home stretching regimen, hot showers, massage therapy as needed, sitting, repositioning and rest. Interventional pain procedures completed include BL MBB L3-L5 x2. Patient is currently on Tramadol, Neurontin, Celebrex Patient denies any side effects of the medication(s), denies excessive drowsiness or sleepiness, denies suicidal ideation and reports that the current pain medication is helping to control the pain and improve activities of daily living. Patient denies any motor or sensory deficits. Patient denies any fever or night sweats, denies any change in the bowel movements or urination. Physical Examination: -Constitutional: Cooperative. Not in acute distress . - Neurologic: Cranial nerve II to XII intact. No focal neurological deficits. - Psychatric: Alert & oriented x 3. Matching mood & appropriate affect. Judgment and insight intact. - Musculoskeletal: Cervical spine: Muscle bulk/ tone/ strength in the bilateral upper extremities normal Vertebral body tenderness to palpation over Spurling test positive Distraction test positive Facet loading test positive Thoracic spine Muscle bulk / tone/ strength in the bilateral paraspinal muscles normal Vertebral body tender to palpation over Facet loading test positive Lumbar spine: Motor bulk/ tone/ strength lower extremities , thigh and legs : 5/5 Deep tendon reflexes : Normal Knee Jerk. Normal Ankle Jerk . Vertebral body tenderness to palpation over Lumbar Facet Loading Test positive w jump reflex over BL L4-L5, L5-S1 Straight Leg Raise: positive at 30 degrees right side/ left side Gaenslen's Test positive Sacral spine : Severe tenderness over the Sacroiliac joint: right side / left side Range of motion: Flexion of the lumbar spine <60 degrees Range of motion: Extension of the lumbar spine <20 degrees Gaenslen's Test positive Cornell's Test positive Lanette test: positive right side / left side Thigh Thrust Test Sacral Thrust Test Assessment and plan: Chronic low back pain secondary to lumbar degenerative disc disease , lumbar spondylosis with facet arthropathy without myelopathy Recommendatin of BL RFA L3-L5. Pt exhibited sufficient and optimal pain relief w prior MBB procedures. Risks, benefits of procedure discussed and pt verbalized understanding. Admits to anticoagulant use or medical history of diabetes. Protocol for discontinuation/ continuation of medications cole procedure discussed. All patient questions answered I have spent less than 30 minutes on patient care today. Dr De La Garza was available by phone for the evaluation of this patient. The time was used to review the medical records including relevant urine studies and Prescription history (MAPs), review of the available imaging, evaluation and examination of the patient, coordination of care with the medical staff and if applicable referring physicians, as well as creation of the medical record PQRS Narrative: Smoking Status Never smoker Hx Alcohol Use (MH) No Home Medications: Ambulatory Orders Amitriptyline HCl [Elavil] 10 mg PO HS 08/29/16 Ergocalciferol (Vitamin D2) [Vitamin D2] 50,000 unit PO SA 08/29/16 Gabapentin 400 mg PO TID 08/29/16 Simvastatin [Zocor] 80 mg PO HS 08/29/16 traMADol HCL [Ultram] 50 mg PO TID 08/29/16 metFORMIN HCL [Glucophage] 500 mg PO DAILY 12/19/16 Celecoxib [CeleBREX] 200 mg PO BID 08/17/17 Pantoprazole [Protonix] 40 mg PO DAILY 08/17/17 Sucralfate [Carafate] 1 gm PO TID 08/17/17 amLODIPine [Norvasc] 5 mg PO QAM 08/17/17 Levothyroxine Sodium [Synthroid] 75 mcg PO QAM 09/10/20 Pioglitazone [Actos] 30 mg PO DAILY 04/20/22 Controlled Substance Measures - Controlled Substance Measures Is patient prescribed a controlled substance at discharge?: No
== END ==
LOC: PNWHC3 09:08
PROVIDERS: ATTEND Specialist
DX: M47.816 Spondylosis without myelopathy or radiculopathy, lumbar region (principal); M51.36 Other intervertebral disc degeneration, lumbar region; G89.29 Other chronic pain; E66.9 Obesity, unspecified; Z68.33 Body mass index [BMI] 33.0-33.9, adult; E11.9 Type 2 diabetes mellitus without complications; Z79.01 Long term (current) use of anticoagulants
CPT/HCPCS: 99211

== ENCOUNTER 2022-07-21 08:05 | Day surgery (SDC) | payer MEDICARE, OTHER ==
[2022-07-21 08:37] VITALS: TEMP 97.5
[2022-07-21 08:42] LABS: Glucose,Whole Blood 112 mg/dL (70-110)
[2022-07-21] MEDS ORDERED: fentaNYL (PF) 50 MCG/ML 2 ML AMP ONE (08:54)
[2022-07-21] MEDS ORDERED: ROPIVACAINE 5 MG/ML 20 ML AMPULE ONE (08:54)
[2022-07-21] MEDS ORDERED: methylPREDNISolone ACETATE 40 MG/ML 1 ML VIAL ONE (08:54)
[2022-07-21] MEDS ORDERED: MIDAZOLAM 2 MG/2 ML VIAL ONE (08:54)
--- NOTE | 2022-07-21 09:20 | P.PCN ---
Date of Procedure: 07/21/22 Procedure(s) Performed: PREOPERATIVE DIAGNOSIS: 1-Lumbar Spondylosis with Facet Arthropathy without myelopathy. 2- Lumber degenerative disc disease. POSTOPERATIVE DIAGNOSIS: 1- Lumbar Spondylosis with Facet Arthropathy without myelopathy. 2- Lumber degenerative disc disease. PROCEDURES : Bilateral Radiofrequency thermocoagulation, L3 , L4 , and L5 medial branch, with fluoroscopic guidance (fluoroscopy images available in the radiology department) ( to denervate the facet joint at bilateral L4-5 ,and L5-S1 levels ). ANESTHESIA: Monitored anesthesia care as per anesthesia department. EBL: Minimal PROCEDURE INDICATION: The patient with low back pain secondary to lumbar facet arthropathy who had more than 80% relief of her pain with previous diagnostic lumbar medial branch block with bupivacaine. PROCEDURE DESCRIPTION / TECHNIQUE: The patient was seen and identified in the preoperative area. Risks, benefits, complications, including but not limited to risk of infection ,bleeding , allergic reactions to the medications and no complete pain releife , and alternatives were discussed with the patient, the patient agreed to proceed with the procedure and signed the consent. IV was started. Vital signs remained stable throughout the procedure. Patient was taken to the OR and time out was completed. The patient was placed in the prone position on the procedure table. The lumber area was prepped and draped in the usual sterile fashion. . Vital signs were closely monitored during the procedure .IV sedation was used during the procedure to decrease patients anxiety. Using AP and then oblique fluoroscopy, the ``eye of the Sharif dog corre sponding to the connection between the superior and transverse articular processes of right L3, L4, and L5 were identified, marked, and localized with 1% lidocaine. Subsequently, a 18 [id number] radiofrequency cannula with a 10- mm active tip was advanced guided by fluoroscopy to each of the``eyes of the Sharif dog at right L3, L4, and L5. Each site then underwent sensory testing at 50 Hz and 0 to 1 volt and motor testing at 2.5 Hz and 0 to 3 volt with local stimulation, but no radicular symptoms down the legs. Thereafter each sites underwent radiofrequency thermocoagulation at 80 degrees celsius for 90 seconds after injecting 0.5 ml of PF Ropivacaine 1ml, then after the thermocoagulation done , 1 ml of the block solution containing Depo-Medrol 20 mg and 3 ml of Ropivacaine 0.5% was injected at the right L3 , L4 , and L5 , levels after negative aspiration of CSF and blood and with no paresthesias. Cannulas were retracted while injecting lidocaine 1% until the needle is out. The same procedure was repeated at the level of Left L3, L4, and L5 levels. At the end of the procedure, the skin was cleansed and bandages were applied. COMPLICATIONS: No acute complications. DISPOSITION / PLANS: The patient was placed in a supine position and transferred to the recovery area in a stable condition for observation and was discharged from the recovery room after meeting discharge criteria. Home discharge instructions given to the patient by the staff. The patient was reexamined prior to discharge. The patient will schedule a follow up in the clinic in 2-4 weeks.
[2022-07-21] MEDS ORDERED: IV FLUID CONTINUATION 1,000 ML IV ONE (09:23)
--- NOTE | 2022-07-21 09:26 | FL ---
EXAMINATION TYPE: FL guided pain mgmt statistic DATE OF EXAM: 07/21/2022 HISTORY: Fluoroscopy time 13 seconds of fluoroscopy provided. IMPRESSION: 1. Fluoroscopy time.
[2022-07-21 09:40] VITALS: BP 129/78; PULSE 85; RESP 16
== END 2022-07-21 09:55 | disposition home or self-care (01) ==
LOC: ORPAIN 08:05
PROVIDERS: ATTEND Specialist
DX: M47.816 Spondylosis without myelopathy or radiculopathy, lumbar region (principal); M51.36 Other intervertebral disc degeneration, lumbar region; I10 Essential (primary) hypertension; E78.5 Hyperlipidemia, unspecified; E11.9 Type 2 diabetes mellitus without complications; E07.9 Disorder of thyroid, unspecified; M19.90 Unspecified osteoarthritis, unspecified site; Z79.890 Hormone replacement therapy; Z79.84 Long term (current) use of oral hypoglycemic drugs; Z79.899 Other long term (current) drug therapy
CPT/HCPCS: 64635; 64636; J2250; J1030; J3010; J2795

== ENCOUNTER → 2022-08-14 | Outpatient (CLI) | payer MEDICARE, OTHER ==
[2022-08-14 09:19] VITALS: BP 150/73; PULSE 91; RESP 18; TEMP 98.4
--- NOTE | 2022-08-16 07:39 | P.PAINPG ---
PQRS Measure Charge Sheet Comment: A 67 yr old male with a history of severe and chronic low back pain secondary to lumbar DDD and spondylosis with facet arthropathy without myelopathy presents today for evaluation s/p BL RFA L3-L5. Pt states he received % pain relief over the last 3 wks s/p procedure. Pain level is currently at /10 in intensity, constant, localized in the lower lumbar spine, sharp in character w shooting towards the RLE> LLE. Pain is provoked by PT years ago. Pain is alleviated with medications (Neurontin, tramadol, Elavil), injections, heat, chiropractic treatments which stopped 6 months ago due to plateau in results, massage is as needed, hot showers and rest. Interventional pain procedures completed include BL RFA L3-L5, Luigi Patient is currently on Celebrex Patient denies any side effects of the medication(s), denies excessive drowsiness or sleepiness, denies suicidal ideation and reports that the current pain medication is helping to control the pain and improve activities of daily living. Patient denies any motor or sensory deficits. Patient denies any fever or night sweats, denies any change in the bowel movements or urination. Physical Examination: -Constitutional: Cooperative. Not in acute distress . - Neurologic: Cranial nerve II to XII intact. No focal neurological deficits. - Psychatric: Alert & oriented x 3. Matching mood & appropriate affect. Judgment and insight intact. - Musculoskeletal: Cervical spine: Muscle bulk/ tone/ strength in the bilateral upper extremities normal Vertebral body tenderness to palpation over Spurling test positive Distraction test positive Facet loading test positive Thoracic spine Muscle bulk / tone/ strength in the bilateral paraspinal muscles normal Vertebral body tender to palpation over Facet loading test positive Lumbar spine: Motor bulk/ tone/ strength lower extremities , thigh and legs : 5/5 Deep tendon reflexes : Normal Knee Jerk. Normal Ankle Jerk . Vertebral body tenderness to palpation over L5 Lumbar Facet Loading Test positive Straight Leg Raise: positive at 30 degrees right side/ left side Gaenslen's Test positive Sacral spine : Severe tenderness over the Sacroiliac joint: right side / left side Range of motion: Flexion of the lumbar spine <60 degrees Range of motion: Extension of the lumbar spine <20 degrees Gaenslen's Test positive Lanette test: positive right side / left side Thigh Thrust Test Sacral Thrust Test Assessment and plan: Chronic low back pain secondary to lumbar degenerative disc disease, spondylosis with facet arthropathy without myelopathy Recommendation of GLENN L5-L1. May need a series, up to 3 within a 6mo period, for optimal pain relief. Risks, benefits of procedure discussed and pt verbalized understanding. Admits to anticoagulant use or medical history of diabetes. Protocol for discontinuation/ continuation of medications cole procedure discussed. All patient questions answered I have spent less than 30 minutes on patient care today. Dr De La Garza was available by phone for the evaluation of this patient. The time was used to review the medical records including relevant urine studies and Prescription history (MAPs), review of the available imaging, evaluation and examination of the patient, coordination of care with the medical staff and if applicable referring physicians, as well as creation of the medical record PQRS Narrative: Smoking Status Never smoker Hx Alcohol Use (MH) No Home Medications: Ambulatory Orders Amitriptyline HCl [Elavil] 10 mg PO HS 08/29/16 Ergocalciferol (Vitamin D2) [Vitamin D2] 50,000 unit PO SA 08/29/16 Gabapentin 400 mg PO TID 08/29/16 Simvastatin [Zocor] 80 mg PO HS 08/29/16 traMADol HCL [Ultram] 50 mg PO TID 08/29/16 metFORMIN HCL [Glucophage] 500 mg PO DAILY 12/19/16 Celecoxib [CeleBREX] 200 mg PO BID 08/17/17 Pantoprazole [Protonix] 40 mg PO DAILY 08/17/17 Sucralfate [Carafate] 1 gm PO TID 08/17/17 amLODIPine [Norvasc] 5 mg PO QAM 08/17/17 Levothyroxine Sodium [Synthroid] 75 mcg PO QAM 09/10/20 Pioglitazone [Actos] 30 mg PO DAILY 04/20/22 Controlled Substance Measures - Controlled Substance Measures Is patient prescribed a controlled substance at discharge?: No
== END ==
LOC: PNWHC3 08:51
PROVIDERS: ATTEND Specialist
DX: M47.816 Spondylosis without myelopathy or radiculopathy, lumbar region (principal); M51.36 Other intervertebral disc degeneration, lumbar region; E11.9 Type 2 diabetes mellitus without complications; Z79.84 Long term (current) use of oral hypoglycemic drugs
CPT/HCPCS: 99211

== ENCOUNTER 2022-09-14 06:59 | Day surgery (SDC) | payer MEDICARE, OTHER ==
[2022-09-14] MEDS ORDERED: LIDOCAINE 1% (10MG/ML) FOR IV START INTRADERMA PRN (07:07)
[2022-09-14] MEDS ORDERED: LACTATED RINGERS 1,000 ML IV SCH (07:07)
[2022-09-14 07:12] VITALS: RESP 18; TEMP 97.2
[2022-09-14] MEDS ORDERED: LACTATED RINGERS 1,000 ML IV ONE ×2 (07:12→08:15)
[2022-09-14 07:19] LABS: Glucose,Whole Blood 110 mg/dL (70-110)
[2022-09-14] MEDS ORDERED: MIDAZOLAM 2 MG/2 ML VIAL ONE (07:57)
[2022-09-14] MEDS ORDERED: IOPAMIDOL M200 10 ML VIAL ONE (07:57)
[2022-09-14] MEDS ORDERED: methylPREDNISolone ACETATE 40 MG/ML 1 ML VIAL ONE (07:57)
[2022-09-14] MEDS ORDERED: fentaNYL (PF) 50 MCG/ML 2 ML AMP ONE (07:57)
--- NOTE | 2022-09-14 08:12 | P.PCN ---
Date of Procedure: 09/14/22 Procedure(s) Performed: PREOPERATIVE DIAGNOSIS: 1- Lumbar Degenerative Disc Diseases 2-Lumbar spondylosis with Facet arthropathy without myelopathy. 3-lumbar spinal stenosis POSTOPERATIVE DIAGNOSIS: Same as preop diagnosis. PROCEDURE 1. Lumbar epidural steroid injection under fluoroscopic guidance at the L5-S1 level. (Fluoroscopy imaging was available in radiology department) 2. Lumbar epidurogram. ANESTHESIA: moderate sedation with intravenous Versed 2 mg ,and fentanyle 50 Mcg Sedation start time: 0 759 Sedation end time : 0809 EBL: Minimal PROCEDURE INDICATION: The patient with low back pain and radiculitis symptoms unresponsive to conservative treatment. Fluoroscopy was used to optimize visualization of the needle placement and to maximize safety. PROCEDURE DESCRIPTION / TECHNIQUE: The patient was seen and identified in the preoperative area. Risks, benefits, complications including but not limited to infections ,bleeding ,allergic reaction to the medications ,nerve damage and not complete pain releife , and alternatives were discussed with the patient. The patient agreed to proceed with the procedure and signed the consent. IV was started, and vital signs were stable. Patient was taken to the OR and time out was completed. The patient was placed in the prone position on procedure table and a pillow was placed under the abdomen to reduce lumbar lordosis. The lumbosacral area was prepped and draped in the usual sterile fashion.ere closely monitored during the procedure. Conscious sedation was used during the procedure to decrease patients anxiety. Vital signs was monitered during the entire procedure. Using anterior-posterior fluoroscopy, the L5-S1 interlaminar space was identified and the skin over this site was marked and then infiltrated with 1% lidocaine subcutaneously. Subsequently, a 18 -gauge Tuohy epidural needle was inserted and advanced toward the epidural space using the ``Loss of resistance technique and guided by AP and lateral fluoroscopy. The correct needle position in the epidural space was verified with the injection of 2 mL of the water soluble contrast dye Isovue 300 contrast and observing an excellent epidurogram with the epidural spread of the dye, after negative aspiration for blood and CSF and in the absence of paresthesias. Again after negative aspiration, a 6 ml mixture containing 40 mg of Depo-medrol ( Preservetive Free ), and 2 ml of preservative free Normal Saline, and 2 ml of preservative free lidocaine 1% solution was injected and a washout of epidurogram was seen. Needle was withdrawn intact, skin was cleansed, and bandages were applied. COMPLICATIONS: None DISPOSITION / PLANS: The patient was placed in a supine position and transferred to the recovery area in a stable condition for observation. There was no rayshawn dence of lower extremity motor or sensory deficit after the procedure. Patient was discharged from the recovery room after meeting discharge criteria. Home discharge instructions were given to the patient by the staff. The patient was reexamined prior to discharge. The patient will schedule a follow up in the clinic in 2-4 weeks.
[2022-09-14 08:19] VITALS: PULSE 81
[2022-09-14 08:31] VITALS: BP 131/79
--- NOTE | 2022-09-14 09:55 | FL ---
EXAMINATION TYPE: FL guided pain mgmt statistic DATE OF EXAM: 09/14/2022 HISTORY: Fluoroscopy time 2 seconds of fluoroscopy provided. IMPRESSION: 1. Fluoroscopy time.
== END 2022-09-14 08:47 | disposition home or self-care (01) ==
LOC: ORPAIN 06:59
PROVIDERS: ATTEND Specialist
DX: M51.16 Intervertebral disc disorders with radiculopathy, lumbar region (principal); M47.26 Other spondylosis with radiculopathy, lumbar region; M48.061 Spinal stenosis, lumbar region without neurogenic claudication
CPT/HCPCS: 62323; 99152; J2250; J1030; J3010; Q9966

== ENCOUNTER → 2022-10-04 | Outpatient (CLI) | payer MEDICARE, OTHER ==
[2022-10-04 10:04] VITALS: BP 156/92; PULSE 96; RESP 18; TEMP 97.7
--- NOTE | 2022-10-04 14:06 | P.PAINPG ---
PQRS Measure Charge Sheet Comment: A 67 yr old male with a history of severe and chronic LBP secondary to lumbar DDD and spondylosis with facet arthropathy without myelopathy presents today for evaluation s/p GLENN L5-S1. Pt states he experienced 80 % pain relief x 3 wks s/p procedure. Pain level is provoked at 8/10 in intensity, constant, localized in the lumbar spine, sharp in character w shooting towards the BLEs. Pain is provoked by standing/ sitting. Pain is alleviated with heat, medications (Tramadol, Celebrex, Neurontin), sitting, repositioning and rest. Interventional pain procedures completed include GLENN L5-S1 x1, BL RFA L3-L5 Patient is currently on Tramadol, Celebrex, Neurontin Patient denies any side effects of the medication(s), denies excessive drowsiness or sleepiness, denies suicidal ideation and reports that the current pain medication is helping to control the pain and improve activities of daily living. Patient denies any motor or sensory deficits. Patient denies any fever or night sweats, denies any change in the bowel movements or urination. Physical Examination: -Constitutional: Cooperative. Not in acute distress . - Neurologic: Cranial nerve II to XII intact. No focal neurological deficits. - Psychatric: Alert & oriented x 3. Matching mood & appropriate affect. Judgment and insight intact. - Musculoskeletal: Cervical spine: Muscle bulk/ tone/ strength in the bilateral upper extremities normal Vertebral body tenderness to palpation over Spurling test positive Distraction test positive Facet loading test positive Thoracic spine Muscle bulk / tone/ strength in the bilateral paraspinal muscles normal Vertebral body tender to palpation over Facet loading test positive Lumbar spine: Motor bulk/ tone/ strength lower extremities , thigh and legs : 5/5 Deep tendon reflexes : Normal Knee Jerk. Normal Ankle Jerk . Vertebral body tenderness to palpation over L5 Lumbar Facet Loading Test positive Straight Leg Raise: positive at 30 degrees right side/ left side Gaenslen's Test positive Sacral spine : Severe tenderness over the Sacroiliac joint: right side / left side Range of motion: Flexion of the lumbar spine <60 degrees Range of motion: Extension of the lumbar spine <20 degrees Gaenslen's Test positive Lanette test: positive right side / left side Thigh Thrust Test Sacral Thrust Test Assessment and plan: Chronic LBP secondary to lumbar DDD, spondylosis with facet arthropathy without myelopathy Recommendation of GLENN L5-S1 #2. May need a series of injections, up to 3 within a 6 mo period, for optimal pain relief. Risks, benefits of procedure discussed and pt verbalized understanding. Admits anticoagulant use and admits to medical history of diabetes. Protocol for discontinuation/ continuation of medications cole procedure discussed. All patient questions answered I have spent less than 30 minutes on patient care today. Dr De La Garza was available by phone for the evaluation of this patient. The time was used to review the medical records including relevant urine studies and Prescription history (MAPs), review of the available imaging, evaluation and examination of the patient, coordination of care with the medical staff and if applicable referring physicians, as well as creation of the medical record PQRS Narrative: Smoking Status Never smoker Hx Alcohol Use (MH) No Home Medications: Ambulatory Orders Amitriptyline HCl [Elavil] 10 mg PO HS 08/29/16 Ergocalciferol (Vitamin D2) [Vitamin D2] 50,000 unit PO SA 08/29/16 Gabapentin 400 mg PO TID 08/29/16 Simvastatin [Zocor] 80 mg PO HS 08/29/16 traMADol HCL [Ultram] 50 mg PO TID 08/29/16 metFORMIN HCL [Glucophage] 500 mg PO BID 12/19/16 Celecoxib [CeleBREX] 200 mg PO BID 08/17/17 Pantoprazole [Protonix] 40 mg PO DAILY 08/17/17 Sucralfate [Carafate] 1 gm PO BID 08/17/17 amLODIPine [Norvasc] 5 mg PO QAM 08/17/17 Levothyroxine Sodium [Synthroid] 75 mcg PO QAM 09/10/20 Pioglitazone [Actos] 30 mg PO DAILY 04/20/22 Controlled Substance Measures - Controlled Substance Measures Is patient prescribed a controlled substance at discharge?: No
== END ==
LOC: PNWHC3 09:10
PROVIDERS: ATTEND Specialist
DX: M47.816 Spondylosis without myelopathy or radiculopathy, lumbar region (principal); M51.36 Other intervertebral disc degeneration, lumbar region; G89.29 Other chronic pain
CPT/HCPCS: 99211

== ENCOUNTER → 2022-11-29 | Outpatient (CLI) | payer MEDICARE, OTHER ==
[2022-11-29 10:22] VITALS: RESP 18
[2022-11-29 10:29] VITALS: BP 127/80; PULSE 79; TEMP 98.1
--- NOTE | 2022-11-29 14:14 | P.PAINPG ---
PQRS Measure Charge Sheet Comment: A 67 yr old male with a history of severe and chronic LBP secondary to lumbar DDD and spondylosis with facet arthropathy without myelopathy presents today for evaluation s/p GLENN L5-S1. Pt states he experienced 70% pain relief x 4 wks s/p procedure. Pain level is provoked at 5/10 in intensity, constant, localized in the lumbar spine, achy in character w shooting pain Pain is provoked by bending, lifting, walking. Pain is alleviated with PT a few years ago which was ineffective, massages as needed from his sister in law whom is masseuse, chiropractic treatments semi weekly x 6 mo in 2021 which was ineffective, heat, ice rarely, medications (Tramadol, Celebrex, Elavil, Neurontin), sitting and rest. Interventional pain procedures completed include GLENN L5-S1 Patient is currently on Tramadol, Celebrex, Elavil, Neurontin Patient denies any side effects of the medication(s), denies excessive drowsin ess or sleepiness, denies suicidal ideation and reports that the current pain medication is helping to control the pain and improve activities of daily living. Patient denies any motor or sensory deficits. Patient denies any fever or night sweats, denies any change in the bowel movements or urination. Physical Examination: -Constitutional: Cooperative. Not in acute distress . - Neurologic: Cranial nerve II to XII intact. No focal neurological deficits. - Psychatric: Alert & oriented x 3. Matching mood & appropriate affect. Judgment and insight intact. - Musculoskeletal: Cervical spine: Muscle bulk/ tone/ strength in the bilateral upper extremities normal Vertebral body tenderness to palpation over Spurling test positive Distraction test positive Facet loading test positive TTP Thoracic spine Muscle bulk / tone/ strength in the bilateral paraspinal muscles normal Vertebral body tender to palpation over Facet loading test positive TTP Lumbar spine: Motor bulk/ tone/ strength lower extremities , thigh and legs : 5/5 Deep tendon reflexes : Normal Knee Jerk. Normal Ankle Jerk . Vertebral body tenderness to palpation over Lumbar Facet Loading Test positive Straight Leg Raise: positive at 30 degrees right side/ left side Gaenslen's Test positive Sacral spine : Severe tenderness over the Sacroiliac joint: right side / left side Range of motion: Flexion of the lumbar spine <60 degrees Range of motion: Extension of the lumbar spine <20 degrees Gaenslen's Test positive right side / left side Lanette test: positive right side / left side Thigh Thrust Test positive right side / left side Sacral Thrust Test positive right side / left side Assessment and plan: Chronic LBP secondary to lumbar DDD, spondylosis with facet arthropathy without myelopathy Will manage residual pain at home and may return to clinic as needed. All questions answered. I have spent less than 30 minutes on patient care today. Dr De La Garza was available by phone for the evaluation of this patient. The time was used to review the medical records including relevant urine studies and Prescription history (MAPs), review of the available imaging, evaluation and examination of the patient, coordination of care with the medical staff and if applicable referring physicians, as well as creation of the medical record PQRS Narrative: Smoking Status Never smoker Hx Alcohol Use (MH) No Home Medications: Ambulatory Orders Amitriptyline HCl [Elavil] 10 mg PO HS 08/29/16 Ergocalciferol (Vitamin D2) [Vitamin D2] 50,000 unit PO SA 08/29/16 Gabapentin 400 mg PO TID 08/29/16 Simvastatin [Zocor] 80 mg PO HS 08/29/16 traMADol HCL [Ultram] 50 mg PO TID 08/29/16 metFORMIN HCL [Glucophage] 500 mg PO BID 12/19/16 Celecoxib [CeleBREX] 200 mg PO BID 08/17/17 Pantoprazole [Protonix] 40 mg PO DAILY 08/17/17 Sucralfate [Carafate] 1 gm PO BID 08/17/17 amLODIPine [Norvasc] 5 mg PO QAM 08/17/17 Levothyroxine Sodium [Synthroid] 75 mcg PO QAM 09/10/20 Pioglitazone [Actos] 30 mg PO DAILY 04/20/22 Controlled Substance Measures - Controlled Substance Measures Is patient prescribed a controlled substance at discharge?: No
== END ==
LOC: PNWHC3 09:09
PROVIDERS: ATTEND Specialist
DX: M51.36 Other intervertebral disc degeneration, lumbar region (principal); M47.816 Spondylosis without myelopathy or radiculopathy, lumbar region; G89.29 Other chronic pain
CPT/HCPCS: 99211

== ENCOUNTER → 2023-01-15 | Outpatient (CLI) | payer MEDICARE, OTHER ==
[2023-01-15 08:36] VITALS: BP 136/79; PULSE 84; RESP 18; TEMP 97.9
--- NOTE | 2023-01-15 13:31 | P.PAINPG ---
PQRS Measure Charge Sheet Comment: A 67 yr old male with a history of severe and chronic LBP x yrs secondary to lumbar DDD and spondylosis with facet arthropathy without myelopathy presents today for LBP. Pain level is provoked at 8/10 in intensity, constant, localized in the lower lumbar spine, sore in character w shooting towards the BL glutes. Pain is provoked by lifting, twisting. Pain is alleviated with PT in 2019, massages as needed, chiropractic treatments twice weekly x 1 yr in 2021, heat, hot showers, physician guided home exercises every morning during showers x 1 yr, repositioning and rest. Interventional pain procedures completed include GLENN L5-S1 x2, BL RFA L3-L5 (Jul 2022) Patient is currently on Tramadol, Elavil, Neurontin Patient denies any side effects of the medication(s), denies excessive drowsiness or sleepiness, denies suicidal ideation and reports that the current pain medication is helping to control the pain and improve activities of daily living. Patient denies any motor or sensory deficits. Patient denies any fever or night sweats, denies any change in the bowel movements or urination. Physical Examination: -Constitutional: Cooperative. Not in acute distress . - Neurologic: Cranial nerve II to XII intact. No focal neurological deficits. - Psychatric: Alert & oriented x 3. Matching mood & appropriate affect. Judgment and insight intact. - Musculoskeletal: Cervical spine: Muscle bulk/ tone/ strength in the bilateral upper extremities normal Vertebral body tenderness to palpation over Spurling test positive Distraction test positive Facet loading test positive TTP Thoracic spine Muscle bulk / tone/ strength in the bilateral paraspinal muscles normal Vertebral body tender to palpation over Facet loading test positive TTP Lumbar spine: Motor bulk/ tone/ strength lower extremities , thigh and legs : 5/5 Deep tendon reflexes : Normal Knee Jerk. Normal Ankle Jerk . Vertebral body tenderness to palpation over L5 Lumbar Facet Loading Test positive Straight Leg Raise: positive at 30 degrees right side/ left side Gaenslen's Test positive Sacral spine : Severe tenderness over the Sacroiliac joint: right side / left side Range of motion: Flexion of the lumbar spine <60 degrees Range of motion: Extension of the lumbar spine <20 degrees Gaenslen's Test positive right side / left side Lanette test: positive right side / left side Thigh Thrust Test positive right side / left side Sacral Thrust Test positive right side / left side Assessment and plan: Chronic LBP secondary to lumbar DDD, spondylosis with facet arthropathy without myelopathy Recommendation of GLENN L5-S1 #3. May need a series of injections for optimal pain relief. Risks, benefits of procedure discussed and pt verbalized understanding. Admits to anticoagulant use or medical history of diabetes. Protocol for discontinuation/ continuation of medications cole procedure discussed. All questions answered. I have spent less than 30 minutes on patient care today. Dr De La Garza was available by phone for the evaluation of this patient. The time was used to review the medical records including relevant urine studies and Prescription history (MAPs), review of the available imaging, evaluation and examination of the patient, coordination of care with the medical staff and if applicable referring physicians, as well as creation of the medical record PQRS Narrative: Smoking Status Never smoker Hx Alcohol Use (MH) No Home Medications: Ambulatory Orders Amitriptyline HCl [Elavil] 10 mg PO HS 08/29/16 Ergocalciferol (Vitamin D2) [Vitamin D2] 50,000 unit PO SA 08/29/16 Gabapentin 400 mg PO TID 08/29/16 Simvastatin [Zocor] 80 mg PO HS 08/29/16 traMADol HCL [Ultram] 50 mg PO TID 08/29/16 metFORMIN HCL [Glucophage] 500 mg PO BID 12/19/16 Celecoxib [CeleBREX] 200 mg PO BID 08/17/17 Pantoprazole [Protonix] 40 mg PO DAILY 08/17/17 Sucralfate [Carafate] 1 gm PO BID 08/17/17 amLODIPine [Norvasc] 5 mg PO QAM 08/17/17 Levothyroxine Sodium [Synthroid] 75 mcg PO QAM 09/10/20 Pioglitazone [Actos] 30 mg PO DAILY 04/20/22 Controlled Substance Measures - Controlled Substance Measures Is patient prescribed a controlled substance at discharge?: No
== END ==
LOC: PNWHC3 08:04
PROVIDERS: ATTEND Specialist
DX: M51.36 Other intervertebral disc degeneration, lumbar region (principal); M47.816 Spondylosis without myelopathy or radiculopathy, lumbar region; G89.29 Other chronic pain; Z72.89 Other problems related to lifestyle
CPT/HCPCS: 99211

== ENCOUNTER 2023-02-08 06:49 | Day surgery (SDC) | payer MEDICARE, OTHER ==
[2023-02-08] MEDS ORDERED: LACTATED RINGERS 1,000 ML IV SCH ×2 (07:14→07:45)
[2023-02-08] MEDS ORDERED: LIDOCAINE 1% (10MG/ML) FOR IV START INTRADERMA PRN (07:14)
[2023-02-08 07:19] LABS: Glucose,Whole Blood 124 mg/dL (70-110)
[2023-02-08 07:20] VITALS: RESP 16; TEMP 97.3
[2023-02-08] MEDS ORDERED: IOPAMIDOL M200 10 ML VIAL ONE (07:54)
[2023-02-08] MEDS ORDERED: methylPREDNISolone ACETATE 40 MG/ML 1 ML VIAL ONE (07:54)
--- NOTE | 2023-02-08 08:05 | P.PCN ---
Date of Procedure: 02/08/23 Description of Procedure: Procedure: 1. L5-S1 Epidural steroid injection under fluoroscopic guidance # 2/3 , 2. Lumbar epidurogram PREOPERATIVE DIAGNOSIS: Lumbar degenerative disc disease, and Lumbar radiculopathy. POSTOPERATIVE DIAGNOSIS: Lumbar degenerative disc disease, and Lumbar radiculopathy. SURGEON: Tamkio Ramirez ANESTHESIA: Local with 1% lidocaine, and IV sedation: None EBL: None. Specimen removed: None Fluoroscopic image: saved to electronic medical records PROCEDURE INDICATION: The patient had history of Lumbar degenerative disc disease and Lumbar radiculopathy. Failed to conservative therapy. Presented for epidural steroid injection. PROCEDURE DESCRIPTION: The patient was seen and identified in the preoperative area. Risks, benefits, complications, and alternatives were discussed with the patient. The patient agreed to proceed with the procedure and signed the consent. and vital signs were stable. Patient was taken to the procedure area, and time out was completed. The patient was placed in the prone position on procedure table and a pillow was placed under the abdomen to reduce lumbar lordosis. The lumbosacral area was prepped and draped in the usual sterile fashion. Critical pause was taken. Vital signs were closely monitored during the procedure. Using anterior-posterior fluoroscopy, the L5-S1 interlaminar space was identified, and skin and deeper tissues were localized with 1% lidocaine. Using anterior-posterior fluoroscopy, lateral fluoroscopy, and [id number] technique, a 20 gauge 3.5 Tuohy epidural needle entered the epidural space. After negative aspiration of CSF and blood with no paresthesias, 1 ml of [id number] contrast dye was injected and an excellent epidurogram was seen. Again after negative aspiration of CSF and blood with no paresthesias, 8 mL of block solution was injected into the epidural space. Block solution contained 40 mg of Depo-Medrol, and 7 mL of preservative-free normal saline. Needle was withdrawn intact, skin was cleansed, and bandages were applied. COMPLICATIONS: None. DISPOSITION / PLANS: The patient was placed in a supine position and transferred to the recovery area in a stable condition for observation. Patient was discharged from the recovery room after meeting discharge criteria. Home discharge instructions given to the patient by the staff. The patient was reexamined prior to discharge. The patient will schedule a follow up in the clinic in 4 weeks.
[2023-02-08] MEDS ORDERED: LACTATED RINGERS 1,000 ML IV ONE (08:06)
--- NOTE | 2023-02-08 08:26 | FL ---
EXAMINATION TYPE: FL guided pain mgmt statistic DATE OF EXAM: 02/08/2023 HISTORY: Fluoroscopy time Total dose area product (DAP) in uGy*m?, mGy*cm? (or similar): 0.89418 IMPRESSION: 1. Fluoroscopy time.
[2023-02-08 08:39] VITALS: BP 154/81; PULSE 68
== END 2023-02-08 08:30 | disposition home or self-care (01) ==
LOC: ORPAIN 06:49
DX: M51.16 Intervertebral disc disorders with radiculopathy, lumbar region (principal); I10 Essential (primary) hypertension; E11.9 Type 2 diabetes mellitus without complications; E78.00 Pure hypercholesterolemia, unspecified; E03.9 Hypothyroidism, unspecified; Z79.1 Long term (current) use of non-steroidal anti-inflammatories (NSAID); Z79.84 Long term (current) use of oral hypoglycemic drugs; Z79.890 Hormone replacement therapy; Z79.899 Other long term (current) drug therapy
CPT/HCPCS: 62323; J1030; Q9966

== ENCOUNTER → 2023-03-08 | Outpatient (CLI) | payer MEDICARE, OTHER ==
[2023-03-08 09:50] VITALS: BP 157/83; PULSE 92; RESP 16; TEMP 98.1
--- NOTE | 2023-03-08 14:26 | P.PAINPG ---
PQRS Measure Charge Sheet Comment: A 67 yr old male with a history of severe and chronic LBP x yrs secondary to lumbar DDD and spondylosis with facet arthropathy without myelopathy presents today for evaluation s/p GLENN L5-S1 #3. Pt states he experienced 65 % pain relief x 1 wks s/p procedure. Pain level is provoked at 8/10 in intensity, constant, localized in the lower lumbar spine, sore in character w shooting towards the BLEs. Pain is provoked by lifting, twisting. Pain is alleviated with PT in 2019, massages as needed, chiropractic treatments twice weekly x 1 yr in 2021, heat, hot showers, physician guided home exercises every morning during showers x 1 yr, repositioning and rest. Oswestry axial pain score of 18. Interventional pain procedures completed include GLENN L5-S1 x3, BL RFA L3-L5 (Jul 2022) Patient is currently on Tramadol, Elavil, Neurontin Patient denies any side effects of the medication(s), denies excessive drows iness or sleepiness, denies suicidal ideation and reports that the current pain medication is helping to control the pain and improve activities of daily living. Patient denies any motor or sensory deficits. Patient denies any fever or night sweats, denies any change in the bowel movements or urination. Physical Examination: -Constitutional: Cooperative. Not in acute distress . - Neurologic: Cranial nerve II to XII intact. No focal neurological deficits. - Psychatric: Alert & oriented x 3. Matching mood & appropriate affect. Judgment and insight intact. - Musculoskeletal: Cervical spine: Muscle bulk/ tone/ strength in the bilateral upper extremities normal Vertebral body tenderness to palpation over Spurling test positive Distraction test positive Facet loading test positive TTP Thoracic spine Muscle bulk / tone/ strength in the bilateral paraspinal muscles normal Vertebral body tender to palpation over Facet loading test positive TTP Lumbar spine: Motor bulk/ tone/ strength lower extremities , thigh and legs : 5/5 Deep tendon reflexes : Normal Knee Jerk. Normal Ankle Jerk . Vertebral body tenderness to palpation over L5 Lumbar Facet Loading Test positive Straight Leg Raise: positive at 30 degrees right side/ left side Gaenslen's Test positive Sacral spine : Severe tenderness over the Sacroiliac joint: right side / left side Range of motion: Flexion of the lumbar spine <60 degrees Range of motion: Extension of the lumbar spine <20 degrees Gaenslen's Test positive right side / left side Lanette test: positive right side / left side Thigh Thrust Test positive right side / left side Sacral Thrust Test positive right side / left side Assessment and plan: Chronic LBP secondary to lumbar DDD, spondylosis with facet arthropathy without myelopathy Recommendation of behavioral health evaluation for SCS Trial Dx G89.4, M 54.16. Video viewed. May need a series of injections for optimal pain relief. Risks, benefits of procedure discussed and pt verbalized understanding. Admits to anticoagulant use or medical history of diabetes. Protocol for discontinuation/ continuation of medications cole procedure discussed. All questions answered. I have spent less than 30 minutes on patient care today. Dr De La Garza was available by phone for the evaluation of this patient. The time was used to review the medical records including relevant urine studies and Prescription history (MAPs), review of the available imaging, evaluation and examination of the patient, coordination of care with the medical staff and if applicable referring physicians, as well as creation of the medical record - Pain Location Bilateral Buttock Non-Pharmacological Interventions: Heat Pharmacological Interventions: PRN Medication, Scheduled Medication PQRS Narrative: Smoking Status Never smoker Hx Alcohol Use (MH) No Home Medications: Ambulatory Orders Amitriptyline HCl [Elavil] 10 mg PO HS 08/29/16 Ergocalciferol (Vitamin D2) [Vitamin D2] 50,000 unit PO SA 08/29/16 Gabapentin 400 mg PO TID 08/29/16 Simvastatin [Zocor] 80 mg PO HS 08/29/16 traMADol HCL [Ultram] 50 mg PO TID 08/29/16 metFORMIN HCL [Glucophage] 500 mg PO BID 12/19/16 Celecoxib [CeleBREX] 200 mg PO BID 08/17/17 Pantoprazole [Protonix] 40 mg PO DAILY 08/17/17 Sucralfate [Carafate] 1 gm PO BID 08/17/17 amLODIPine [Norvasc] 5 mg PO QAM 08/17/17 Levothyroxine Sodium [Synthroid] 75 mcg PO QAM 09/10/20 Pioglitazone [Actos] 30 mg PO DAILY 04/20/22 Controlled Substance Measures - Controlled Substance Measures Is patient prescribed a controlled substance at discharge?: No
== END ==
LOC: PNWHC3 09:05
PROVIDERS: ATTEND Specialist
DX: M51.36 Other intervertebral disc degeneration, lumbar region (principal); M47.816 Spondylosis without myelopathy or radiculopathy, lumbar region; G89.29 Other chronic pain; M53.3 Sacrococcygeal disorders, not elsewhere classified
CPT/HCPCS: 99211

== ENCOUNTER → 2023-04-11 | Outpatient (CLI) | payer MEDICARE, OTHER ==
[2023-04-11 14:33] VITALS: BP 143/80; PULSE 92; RESP 16; TEMP 98.2
--- NOTE | 2023-04-11 14:34 | P.PAINPG ---
PQRS Measure Charge Sheet Comment: A 67 yr old male with a history of severe and chronic LBP x 8 yrs secondary to lumbar DDD and spondylosis with facet arthropathy without myelopathy presents today for evaluation s/p LBP evaluation. Pt interested in a SCS and has completed a behavioral health evaluation for clearance. Pain level is provoked at 8/10 in intensity, constant, localized in the lower lumbar spine, sore in character w shooting towards the BLEs. Pain is provoked by lifting, twisting. Pain is alleviated with PT in 2019, massages as needed, chiropractic treatments twice weekly x 1 yr in 2021, heat, hot showers, physician guided home exercises every morning during showers x 1 yr, repositioning and rest. Oswestry axial pain score of 22. Interventional pain procedures completed include GLENN L5-S1 x3, BL RFA L3-L5 (Jul 2022) Patient is currently on Tramadol, Elavil, Neurontin Patient denies any side effects of the medication(s), denies excessive drowsiness or sleepiness, denies suicidal ideation and reports that the current pain medication is helping to control the pain and improve activities of daily living. Patient denies any motor or sensory deficits. Patient denies any fever or night sweats, denies any change in the bowel movements or urination. Physical Examination: -Constitutional: Cooperative. Not in acute distress . - Neurologic: Cranial nerve II to XII intact. No focal neurological deficits. - Psychatric: Alert & oriented x 3. Matching mood & appropriate affect. Judgment and insight intact. - Musculoskeletal: Cervical spine: Muscle bulk/ tone/ strength in the bilateral upper extremities normal Vertebral body tenderness to palpation over Spurling test positive Distraction test positive Facet loading test positive TTP Thoracic spine Muscle bulk / tone/ strength in the bilateral paraspinal muscles normal Vertebral body tender to palpation over Facet loading test positive TTP Lumbar spine: Motor bulk/ tone/ strength lower extremities , thigh and legs : 5/5 Deep tendon reflexes : Normal Knee Jerk. Normal Ankle Jerk . Vertebral body tenderness to palpation over L5 Lumbar Facet Loading Test positive Straight Leg Raise: positive at 30 degrees right side/ left side Gaenslen's Test positive Sacral spine : Severe tenderness over the Sacroiliac joint: right side / left side Range of motion: Flexion of the lumbar spine <60 degrees Range of motion: Extension of the lumbar spine <20 degrees Gaenslen's Test positive right side / left side Lanette test: positive right side / left side Thigh Thrust Test positive right side / left side Sacral Thrust Test positive right side / left side Assessment and plan: Chronic LBP secondary to lumbar DDD, spondylosis with facet arthropathy without myelopathy Recommendation of SCS Trial Dx G89.4, M 54.16. Behavioral health clearance received. Video viewed. May need a series of injections for optimal pain relief. Risks, benefits of procedure discussed and pt verbalized understanding. Admits to anticoagulant use or medical history of diabetes. Protocol for discontinuation/ continuation of medications cole procedure discussed. All questions answered. I have spent less than 30 minutes on patient care today. Dr De La Garza was available by phone for the evaluation of this patient. The time was used to review the medical records including relevant urine studies and Prescription history (MAPs), review of the available imaging, evaluation and examination of the patient, coordination of care with the medical staff and if applicable refe rring physicians, as well as creation of the medical record PQRS Narrative: Smoking Status Never smoker Hx Alcohol Use (MH) No Home Medications: Ambulatory Orders Amitriptyline HCl [Elavil] 10 mg PO HS 08/29/16 Ergocalciferol (Vitamin D2) [Vitamin D2] 50,000 unit PO SA 08/29/16 Gabapentin 400 mg PO TID 08/29/16 Simvastatin [Zocor] 80 mg PO HS 08/29/16 traMADol HCL [Ultram] 50 mg PO TID 08/29/16 metFORMIN HCL [Glucophage] 500 mg PO BID 12/19/16 Celecoxib [CeleBREX] 200 mg PO BID 08/17/17 Pantoprazole [Protonix] 40 mg PO DAILY 08/17/17 Sucralfate [Carafate] 1 gm PO BID 08/17/17 amLODIPine [Norvasc] 5 mg PO QAM 08/17/17 Levothyroxine Sodium [Synthroid] 75 mcg PO QAM 09/10/20 Pioglitazone [Actos] 30 mg PO DAILY 04/20/22 Controlled Substance Measures - Controlled Substance Measures Is patient prescribed a controlled substance at discharge?: No
== END ==
LOC: PNWHC3 14:03
PROVIDERS: ATTEND Specialist
DX: M16.9 Osteoarthritis of hip, unspecified (principal); M51.36 Other intervertebral disc degeneration, lumbar region; M47.816 Spondylosis without myelopathy or radiculopathy, lumbar region; G89.29 Other chronic pain
CPT/HCPCS: 99211

== ENCOUNTER 2023-06-21 11:21 | Day surgery (SDC) | payer MEDICARE, OTHER ==
[2023-06-18 11:23] VITALS: BMI 33.9
[~2023-06-21 11:21] MED LIST changes: +MIDAZOLAM 2 MG/2 ML VIAL IV PRN; +Pre Op ABX Message 1 EACH MISC MISCELLANE ONE; +fentaNYL (PF) 50 MCG/ML 2 ML AMP IV PRN
[2023-06-21 12:00] VITALS: TEMP 97.6
[2023-06-21 12:08] LABS: Glucose,Whole Blood 111 mg/dL (70-110)
[2023-06-21] MEDS ORDERED: ONDANSETRON 4 MG/2 ML VIAL ONE (12:21)
[2023-06-21] MEDS ORDERED: ONDANSETRON 4 MG/2 ML VIAL IVP ONE (12:24)
[2023-06-21] MEDS ORDERED: KETOROLAC 15 MG/ML 1 ML VIAL ONE (12:30)
[2023-06-21] MEDS ORDERED: MIDAZOLAM 2 MG/2 ML VIAL ONE (12:30)
[2023-06-21] MEDS ORDERED: PROPOFOL 10 MG/ML 20 ML VIAL IV ONE (12:30)
[2023-06-21] MEDS ORDERED: KETAMINE HCL IN 0.9 % NACL 50 MG/5 ML SYRINGE ONE (12:30)
[2023-06-21] MEDS ORDERED: fentaNYL (PF) 50 MCG/ML 2 ML AMP ONE (12:30)
[2023-06-21] MEDS ORDERED: SODIUM CHLORIDE 0.9% 100 ML with ceFAZolin 2,000 GM IV ONE ×2 (12:34)
[2023-06-21] MEDS ORDERED: SODIUM CHLORIDE 0.9% 100 ML with ceFAZolin 2 GM IV ONE ×2 (12:34)
[2023-06-21] MEDS ORDERED: LIDOCAINE 0.5%-EPI 1:200,000 50 ML VIAL SQ ONE ×2 (12:50)
[2023-06-21] MEDS ORDERED: LACTATED RINGERS 1,000 ML IV ONE (14:57)
--- NOTE | 2023-06-21 15:21 | FL ---
Intraoperative/procedural fluoroscopic services were provided. Total fluoroscopy time is 30 minutes 5 7 seconds seconds with a total of 5 submitted images to PACS. Please see the operative/procedural not e for further details. DAP: 204.45 Gycm2
[2023-06-21] MEDS ORDERED: HYDROmorphone 0.5 MG/0.5 ML SYRINGE IVP ONE (15:35)
[2023-06-21 16:07] VITALS: PULSE 82; RESP 18
[2023-06-21 16:24] VITALS: BP 130/87
--- NOTE | 2023-06-21 16:47 | P.PCN ---
Date of Procedure: 06/21/23 Procedure(s) Performed: PROCEDURES: 1-spinal cord stimulator permanent leads implant under fluoroscopic guidance X2 leads . (Fluoroscopy images stored on file in radiology department ) CPT code 59798 x2 2-implantation of spinal cord stimulator generator Cpt code 59448 PREOPERATIVE DIAGNOSIS: 1-lumbar spondylosis with lumbar facet arthropathy without myelopathy 2-chronic pain syndrome. 3-lumbar degenerative disc disease POSTOPERATIVE DIAGNOSIS: Same as preop diagnosis. ANESTHESIA: monitered anesthesia care as per anesthesia department BLOOD LOSS: Minimal. COMPLICATIONS: None. PROCEDURE INDICATIONS: The patient with a history of severe intractable , chronic low back pain with radiation to the lower extremities bilateraly who failed more conservative treatment measures. And she failed all interventional pain management, we discussed with the patient in the clinic the option of doing spinal cord stimulator and she was very interested risk and benefits of the procedure was discussed with the patient and she agreed with proceeding, and patient was evaluated by psychologist, and there was no contraindication to proceed with a spinal cord stimulator, vision already had successful spinal cord stimulator trial done above months ago and she is here today to have permanent implant. PROCEDURE DESCRIPTION: The patient was seen and identified in the preoperative area. Risks, benefits, complications, and alternatives were discussed with the patient. The patient agreed to proceed with the procedure and signed the consent. IV was started.Patient was taken to the operating room and time out was performed. The Thoracic and lumbar areas were prepped with Druaprep x2 and draped in the usual sterile fashion. Using sterile gowns and gloves, and after covering the fluoroscopic camera with a sterile drape, the procedure was proceeded on with. The fluoroscopic camera was placed in the AP position, and the T12-L1 interlaminar space was identified and localized in the left paramedian trajectory with proparacaine 0.5% mixed with lidocaine 0.5 % mixed with epinephrine. Under fluoroscopic guidance, a 14 gauge 6 inches long epimed needle guided into the interlaminar space. Then using the right oblique fluoroscopy, anterior-posterior fluoroscopy, and [id number] technique, the epidural space was accessed. The first lead (8 contacts leads from [employer] ) was passed and noted to be in the dorsal portion of the epidural space in the lateral view. Then using anterior-posterior view, the first lead was passed up to the upper part of of T9 vertebra. Subsequently, a second 14 gauge 6 inches long epidural needle was inserted just posterior to the first needle and was advanced toward the epidural space in a parallel direction to the first needle. Then using lateral fluoroscopy, anterior-posterior fluoroscopy, and [id number] technique, the epidural space was accessed by the second needle into the same interlaminar space as the first needle. Then a second similar lead was passed and noted to be in the dorsal portion of the epidural space in the lateral view. Then using anterior- posterior view, the second lead was passed up to the top of lowe part T8 vertebra, and was right in a parallel position to the first lead. Subsequently, the leads were tested and they gave good stimulation on the low back area and the lower extremity bilaterally. Then incisions done in the spinal area upper lumbar and I did the dissection, repeat pockets for the lead, and then after that I created a pocket on the left side of the flank area to create the pocket for the generator, then the generator connected to the leads, and the generator, and under the skin and placed in the pocket, adequate hemostasis obtained, and then the incision closed using 20 Vicryl, 30 Vicryls, for the skin a, he will use antibiotic mg every 24 hours for 1 week and also she will use Norris 5/325 every 6 hours when necessary when necessary for pain, patient will follow up in the pain clinic next week note= intraoperative complex programming of the spinal cord stimulator leads , by changing pulsed width, amplitude and the frequency of the stimulation, we were able to get 100% coverage of the painful area, ( low back )
== END 2023-06-21 16:40 | disposition home or self-care (01) ==
LOC: OR 11:21
PROVIDERS: ATTEND Specialist
DX: M47.816 Spondylosis without myelopathy or radiculopathy, lumbar region (principal); M51.36 Other intervertebral disc degeneration, lumbar region; G89.29 Other chronic pain
CPT/HCPCS: 63650; J2250; J0690; J2405; J3010; J1885; J2704; J1170; 64555

== ENCOUNTER → 2023-06-28 | Outpatient (CLI) | payer MEDICARE, OTHER ==
[2023-06-28 12:33] VITALS: BP 137/81; PULSE 94; RESP 15; TEMP 98.6
--- NOTE | 2023-06-28 15:45 | P.PN ---
Progress Note - Text Progress Note Date: 06/28/23 This is follow-up visit for this 68 years old male with a history of chronic and severe low back pain, diagnosed with lumbar degenerative disc disease and lumbar spondylosis with lumbar facet arthropathy, last week we did implantation of the spinal cord stimulator generator and permanent implant of the spinal cord stimulator leads, patient here today to check on his incision and to do programming of the spine and core stimulator generator, I checked the incision in the lumbar spine and incision looked good and healing appropriately. There is no sign of infection no bleeding and no hematoma, and after that with a complex programming of the spinal cord stimulator generator change in pulse with amplitude and the frequency and patient was getting good stimulation over the painful area and he was getting good pain relief more than 70% improvement of his pain level, and patient will follow up in the pain clinic in 3-4 weeks Physical Examinations : -Constitutiona : Cooperative , not in acute distress . -HEENT : nech : supple , no Lymphadenopathy , normal thyroid size . : eyes : no ptosis , no icterus, no photophobia . - neurologic : Cranial nerve II to XII intact , no focal n eurological deffecit . -psychatric : alert , oriented X 3 , appropriate affect , intact judgment and insight . -Lymphatic : no Lymphadenopathy . - musculoskeltal : Lumber spine moter stegnth lower extremities ,thigh and legs 5/5 Right side , 5/5 Left side .
== END ==
LOC: PNWHC3 10:28
PROVIDERS: ATTEND Specialist
DX: M51.36 Other intervertebral disc degeneration, lumbar region (principal); M47.816 Spondylosis without myelopathy or radiculopathy, lumbar region; G89.29 Other chronic pain
CPT/HCPCS: 99211

== ENCOUNTER → 2023-07-25 | Outpatient (CLI) | payer MEDICARE, OTHER ==
[2023-07-25 10:50] VITALS: BP 137/78; PULSE 92; RESP 16
--- NOTE | 2023-07-25 14:48 | P.PAINPG ---
PQRS Measure Charge Sheet Comment: A 67 yr old male with a history of severe and chronic LBP x 8 yrs secondary to lumbar DDD and spondylosis with facet arthropathy without myelopathy presents today for evaluation s/p LBP evaluation s/p SCS implant. Pain level is provoked at 6/10 in intensity, constant, localized in the lower lumbar spine, p redominantly axial, sore in character w occasional shooting towards the BLEs. Pain is provoked by lifting, twisting. Pain is alleviated with PT in 2019, massages as needed, chiropractic treatments twice weekly x 1 yr in 2021, heat, hot showers, physician guided home exercises every morning during showers x 1 yr, repositioning and rest. Oswestry axial pain score of 20. Interventional pain procedures completed include GLENN L5-S1 x3, BL RFA L3-L5 (Jul 2022), Lumbar SCS Implant Patient is currently on Tramadol, Elavil, Neurontin Patient denies any side effects of the medication(s), denies excessive drowsiness or sleepiness, denies suicidal ideation and reports that the current pain medication is helping to control the pain and improve activities of daily living. Patient denies any motor or sensory deficits. Patient denies any fever or night sweats, denies any change in the bowel movements or urination. Physical Examination: -Constitutional: Cooperative. Not in acute distress . - Neurologic: Cranial nerve II to XII intact. No focal neurological deficits. - Psychatric: Alert & oriented x 3. Matching mood & appropriate affect. Judgment and insight intact. - Musculoskeletal: Cervical spine: Muscle bulk/ tone/ strength in the bilateral upper extremities normal Vertebral body tenderness to palpation over Spurling test positive Distraction test positive Facet loading test positive TTP Thoracic spine Muscle bulk / tone/ strength in the bilateral paraspinal muscles normal Vertebral body tender to palpation over Facet loading test positive TTP Lumbar spine: Motor bulk/ tone/ strength lower extremities , thigh and legs : 5/5 Deep tendon reflexes : Normal Knee Jerk. Normal Ankle Jerk . Vertebral body tenderness to palpation over L5 Lumbar Facet Loading Test positive Straight Leg Raise: positive at 30 degrees right side/ left side Gaenslen's Test positive Sacral spine : Severe tenderness over the Sacroiliac joint: right side / left side Range of motion: Flexion of the lumbar spine <60 degrees Range of motion: Extension of the lumbar spine <20 degrees Gaenslen's Test positive right side / left side Lanette test: positive right side / left side Thigh Thrust Test positive right side / left side Sacral Thrust Test positive right side / left side Assessment and plan: Chronic LBP secondary to lumbar DDD, spondylosis with facet arthropathy without myelopathy Will manage residual pain and may RTC on an as needed basis. All questions answered. I have spent less than 30 minutes on patient care today. Dr De La Garza was available by phone for the evaluation of this patient. The time was used to review the medical records including relevant urine studies and Prescription history (MAPs), review of the available imaging, evaluation and examination of the patient, coordination of care with the medical staff and if applicable referring physicians, as well as creation of the medical record PQRS Narrative: Smoking Status Never smoker Hx Alcohol Use (MH) No Home Medications: Ambulatory Orders Amitriptyline HCl [Elavil] 10 mg PO HS 08/29/16 Ergocalciferol (Vitamin D2) [Vitamin D2] 50,000 unit PO SA 08/29/16 Gabapentin 400 mg PO TID 08/29/16 Simvastatin [Zocor] 80 mg PO HS 08/29/16 traMADol HCL [Ultram] 50 mg PO TID 08/29/16 metFORMIN HCL [Glucophage] 500 mg PO BID 12/19/16 Celecoxib [CeleBREX] 200 mg PO BID 08/17/17 Pantoprazole [Protonix] 40 mg PO 1200 08/17/17 Sucralfate [Carafate] 1 gm PO BID 08/17/17 amLODIPine [Norvasc] 5 mg PO QAM 08/17/17 Levothyroxine Sodium [Synthroid] 75 mcg PO QAM 09/10/20 Pioglitazone [Actos] 30 mg PO QAM 04/20/22 HYDROcodone/APAP 5-325MG [Lesage 5-325] 1 tab PO Q4HR PRN 7 Days #30 tab 06/21/23 Levofloxacin [Levaquin] 500 mg PO DAILY 7 Days #7 tab 06/21/23 Controlled Substance Measures - Controlled Substance Measures Is patient prescribed a controlled substance at discharge?: No
== END ==
LOC: PNWHC3 09:14
PROVIDERS: ATTEND Specialist
DX: M51.36 Other intervertebral disc degeneration, lumbar region (principal); M47.816 Spondylosis without myelopathy or radiculopathy, lumbar region; G89.29 Other chronic pain
CPT/HCPCS: 99211

== ENCOUNTER → 2024-04-16 | Outpatient (CLI) | payer MEDICARE, OTHER | LOC: PNWHC3 08:15 | PROVIDERS: ATTEND Specialist | DX: G89.4 Chronic pain syndrome | CPT/HCPCS: 99211 ==